=== PATIENT | male | born 1950 | race Caucasian/White ===

== ENCOUNTER 2021-05-23 01:34 | Day surgery (SDC) | payer MEDICARE, SELFPAY ==
[2021-04-15 09:51] VITALS: BMI 18.0
[2021-05-03 13:44] VITALS: BMI 18.5
[2021-05-23 10:00] VITALS: BP 167/65; PULSE 54; RESP 20; TEMP 36.5; O2SAT 98; BMI 17.4
--- NOTE | 2021-05-23 10:05 | WPDANESEPPF ---
Anes - Initial Pre Proc Eval Procedure: Operation Date: 05/23/21 11:00 Proposed Procedures p Screening Colonoscopy - Tomy Lobo MD Date/Time: 05/23/21 10:05 Surgeon: Tomy Lobo MD Pre Op Diagnosis: neoplasm screening Patient Data Age: 71 Gender: M Height: 1.78 m Weight: 55.1 kg Last Vital Signs Temp 36.5 C 05/23/21 10:00 Pulse 54 L 05/23/21 10:00 Resp 20 05/23/21 10:00 BP 167/65 H 05/23/21 10:00 Pulse Ox 98 05/23/21 10:00 Allergies Allergy/AdvReac Type Severity Reaction Status Date / Time No Known Allergies Allergy Verified 05/23/21 09:59 Home Medications Medication Instructions Recorded Confirmed Type escitalopram oxalate 10 mg tablet See Rx Instructions .ROUTE 02/01/21 05/03/21 Rx .COMPLEX #90 tablet lisinopril 2.5 mg tablet See Rx Instructions .ROUTE 02/23/21 05/03/21 Rx .COMPLEX #90 tablet rosuvastatin 40 mg tablet See Rx Instructions .ROUTE 02/23/21 05/03/21 Rx .COMPLEX #90 tablet tamsulosin 0.4 mg capsule See Rx Instructions .ROUTE 02/23/21 05/03/21 Rx .COMPLEX #90 cap metoprolol succinate 25 mg See Rx Instructions .ROUTE 04/19/21 05/03/21 Rx tablet,extended release 24 hr .COMPLEX #30 tablet benzonatate 200 mg capsule 200 mg PO TID PRN #30 cap 04/25/21 05/03/21 Rx gabapentin 300 mg capsule 300 mg PO QHS #90 cap 05/03/21 05/03/21 Rx Patient hx anesthesia problems: none Family hx anesthesia problems: none Results Review: All pre-operative results and documents have been reviewed as part of the pre-operative evaluation. [facility] Past Medical History Medical History History of actinic keratoses History of basal cell carcinoma (BCC) History of lung cancer 2011 Surgical History Surgical History History of lung surgery History of radical neck dissection History of removal of cyst testicle removed 03/2019 Family History Family History Father Family history of diabetes mellitus in first degree relative Social History Social History Smoking packs per day: 1 Smoking cigarettes per day: 20.0 Years smoked: 40 Smoking pack-years: 40.00 Smoking status: Former smoker Tobacco type: cigarettes Alcohol intake: current Drinks per week: 12 Substance use: former Substance use type: marijuana Other substance usage details: 3 or 4 times a week. Living arrangements: with family Spiritual care concerns: No Anes - Eval Final PreProcedure Day of Procedure 05/23/21 10:05 Patient weight: thin Heart: regular rate and rhythm Lungs: clear to auscultation Airway: Mallampati scale class II and other (partial tongue resection, limited movement) Neurological: alert and oriented Last oral intake: >/= 8 hours ASA classification: III Emergent: no Anesthetic plan: proceed Anesthesia type and monitoring: general GIVS and standard monitoring Results Review: All pre-operative results and documents have been reviewed as part of the pre-operative evaluation. Informed Consent: The patient's anesthetic plan and its attendant risks and benefits were discussed with the patient/family/POA. Questions were solicited and answers provided to the satisfaction of the patient/family/POA.
[2021-05-23] MEDS: LACTATED RINGERS 1,000 ML 30 ML IV CONT (10:11)
--- NOTE | 2021-05-23 10:34 | PM.HPGS ---
History of Present Illness History of Present Illness Consent: Risks, benefits, and alternatives have been discussed and questions answered. Patient agrees to proceed with procedure. Chief complaint: neoplasm screening Narrative: Carmelo Yanes is a 71 year old male here for screening colonoscopy, last one about 10 years ago. Review of Systems Constitutional: Constitutional: Denies headache(s) and Denies weakness Eyes: Eyes: Denies blurry vision ENT: Reports Normal hearing present, Denies headache(s) and Denies neck pain Cardiovascular: Cardiovascular: Denies chest pain and Denies dyspnea Respiratory: Respiratory: Denies dyspnea Gastrointestinal: Gastrointestinal: Reports no additional gastrointestinal complaints Genitourinary: Genitourinary: Denies dysuria Musculoskeletal: Musculoskeletal: Denies neck pain Integumentary/Breasts: Skin/Breast: Denies dry skin Neurologic: Reports Normal hearing present, Denies headache(s) and Denies weakness Psychiatric: Psychiatric: Denies anxiety Endocrine: Endocrine: Denies change in body appearance Hematologic/Lymphatic: Hematologic/Lymphatic: Denies easy bleeding Allergic/Immunologic: Allergic/Immunologic: Denies urticaria PMF Past Medical History Medical History (Updated 05/23/21 @ 10:34 by Tomy Lobo MD) Colon cancer screening History of actinic keratoses History of basal cell carcinoma (BCC) History of lung cancer 2011 Surgical History Surgical History History of lung surgery History of radical neck dissection History of removal of cyst testicle removed 03/2019 Family History Family History Father Family history of diabetes mellitus in first degree relative Social History Social History Smoking packs per day: 1 Smoking cigarettes per day: 20.0 Years smoked: 40 Smoking pack-years: 40.00 Smoking status: Former smoker Tobacco type: cigarettes Alcohol intake: current Drinks per week: 12 Substance use: former Substance use type: marijuana Other substance usage details: 3 or 4 times a week. Living arrangements: with family Spiritual care concerns: No Meds Home Medications and Allergies Home Medications Medication Instructions Recorded Confirmed Type escitalopram oxalate 10 mg tablet See Rx Instructions .ROUTE 02/01/21 05/03/21 Rx .COMPLEX #90 tablet lisinopril 2.5 mg tablet See Rx Instructions .ROUTE 02/23/21 05/03/21 Rx .COMPLEX #90 tablet rosuvastatin 40 mg tablet See Rx Instructions .ROUTE 02/23/21 05/03/21 Rx .COMPLEX #90 tablet tamsulosin 0.4 mg capsule See Rx Instructions .ROUTE 02/23/21 05/03/21 Rx .COMPLEX #90 cap metoprolol succinate 25 mg See Rx Instructions .ROUTE 04/19/21 05/03/21 Rx tablet,extended release 24 hr .COMPLEX #30 tablet benzonatate 200 mg capsule 200 mg PO TID PRN #30 cap 04/25/21 05/03/21 Rx gabapentin 300 mg capsule 300 mg PO QHS #90 cap 05/03/21 05/03/21 Rx Allergies Allergy/AdvReac Type Severity Reaction Status Date / Time No Known Allergies Allergy Verified 05/23/21 09:59 Vital Signs Vital Signs - 24 hr 05/23/21 10:00 Temperature 97.7 F Pulse Rate 54 L Respiratory Rate 20 Blood Pressure 167/65 H Pulse Oximetry 98 Exam Const: General: comfortable and no acute distress HENMT: General nose exam: Normal nares present Eyes: General: appearance normal, both eyes and all related structures Neck: Neck: no JVD Resp: Auscultation: clear to auscultation bilaterally Cardio: Rate: regular rate Rhythm: regular rhythm GI: Inspection: non-distended GI Palp: Yes Soft to palpation Skin: General skin exam: normal color Neuro: General: gait normal Speech: normal speech Extrem: General: normal to inspection Psych: Mental Status: mental status grossly normal Assessm
[2021-05-23 10:55] VITALS: BP 141/62; PULSE 47; RESP 16; O2SAT 100
[2021-05-23 11:05] VITALS: BP 141/58; PULSE 53; RESP 14; O2SAT 100
[2021-05-23 11:15] VITALS: BP 158/69; PULSE 46; RESP 14; O2SAT 100
== END 2021-05-23 12:14 | disposition home or self-care (01) ==
PROVIDERS: PCP Internal Medicine; Visit Provider Internal Medicine Gastroenterology
PROC: 0DJD8ZZ Inspection of Lower Intestinal Tract, Via Natural or Artificial Opening Endoscopic (ICD-10-PCS; CPT 45378; principal; 2021-05-23 11:00)
DX: Z12.11 Encounter for screening for malignant neoplasm of colon (principal); K57.30 Diverticulosis of large intestine without perforation or abscess without bleeding; K64.8 Other hemorrhoids; Z85.828 Personal history of other malignant neoplasm of skin; Z87.891 Personal history of nicotine dependence; F12.90 Cannabis use, unspecified, uncomplicated
CPT/HCPCS: G0121; J2704; J7120

== ENCOUNTER 2021-08-12 07:22 | Outpatient (CLI) | payer MEDICARE, SELFPAY ==
--- NOTE | 2021-08-12 07:30 | ECHO_ITS ---
Patient Info Name: Carmelo Yanes Age: 71 years : 1950 Gender: Male Ht: 70 in Wt: 125 lbs BSA: 1.66 m2 HR: 43 bpm BP: 157 / 71 mmHg Technical Quality: Good Exam Date: 08/12/2021 7:43 AM Exam Location: [facility] Patient Status: Outpatient Admit Date: 08/12/2021 Staff Ordering Physician: Michael Way DO Trauma Doctor: Fide Benavides RDCS Attending Provider: Michael Way DO Referring Physician: Seamus SEARS; Exam Type: CA echo doppler color flow Study Info Indications I35.1 - Nonrheumatic aortic (valve) insufficiency Complete two-dimensional, color flow and Doppler transthoracic echocardiogram is performed. Summary 1. Complete two-dimensional, color flow and Doppler transthoracic echocardiogram is performed. 2. Left ventricular chamber dimension is mildly enlarged. 3. Left ventricular systolic function is preserved, estimated at 50-55%. 4. The left ventricular diastolic function is grade II diastolic dysfunction. 5. E/e' 8 is minimally elevated. 6. Global longitudinal strain is abnormal at -16.0%. 7. There is moderate aortic valve sclerosis. 8. There is mild to moderate aortic valve regurgitation. 9. There is trace mitral valve regurgitation. 10. No pulmonary hypertension, estimated pulmonary arterial systolic pressure is 22 mmHg. Left Ventricle E/e' 8 is minimally elevated. Global longitudinal strain is abnormal at -16.0%. Left ventricular systolic function is preserved, estimated at 50-55%. Left ventricular chamber dimension is mildly enlarged. The left ventricular diastolic function is grade II diastolic dysfunction. Right Ventricle Right ventricular systolic function is normal and with normal TAPSE 3.0 cm. Right ventricular chamber dimension is normal. Left Atria Left atrial chamber dimension is normal. Right Atria Right atrial chamber dimension is normal. Aortic Valve The aortic valve is trileaflet. There is moderate aortic valve sclerosis. There is no aortic valve stenosis. There is mild to moderate aortic valve regurgitation. Pulmonic Valve There is no pulmonic regurgitation. Mitral Valve There is no mitral valve stenosis. There is trace mitral valve regurgitation. Tricuspid Valve There is no tricuspid valve regurgitation. No pulmonary hypertension, estimated pulmonary arterial systolic pressure is 22 mmHg. Pericardium/Pleural There is no pericardial effusion. Inferior Vena Cava Normal inferior vena cava with >50% collapse upon inspiration consistent with normal right atrial pressure, 5 mmHg. Aorta The aortic root size at the sinus of Valsalva is normal. Left Ventricular Outflow Tract Name Value Normal LVOT 2D LVOT Diameter 2.0 cm LVOT Doppler LVOT Peak Gradient 6 mmHg LVOT Mean Gradient 3 mmHg LVOT VTI 30 cm LVOT VTI/AV VTI Ratio 0.8 LVOT Stroke Volume 95 ml LVOT CO 3.8 l/min LVOT CI 2.3 l/min/m2 Pulmonic Valve --------
== END 2021-08-12 07:23 | disposition home or self-care (01) ==
LOC: ANHCARD 07:24
PROVIDERS: PCP Internal Medicine; Visit Provider Internal Medicine Cardiovascular Disease
DX: I35.1 Nonrheumatic aortic (valve) insufficiency (principal)
CPT/HCPCS: 93306

== ENCOUNTER 2021-09-27 08:44 | Outpatient (CLI) | payer MEDICARE, SELFPAY ==
--- NOTE | ~2021-09-27 | US_ITS ---
EXAMINATION: US aorta [facility] DATE: 09/27/2021 09:41 INDICATION: Abdominal aortic aneurysm screening with risk factors of prior smoking, hypertension and borderline diabetes TECHNIQUE: Grayscale, color Doppler, and pulsed Doppler images of the aorta and common iliac arteries were obtained. COMPARISON: 01/01/2019 FINDINGS: The proximal aorta measures 2.8 cm in AP diameter. The mid aorta measures 2.5 cm. The distal aorta me asures 1.5 cm. There are scattered nonhemodynamically significant atherosclerotic plaque throughout t he aorta. The right common iliac artery measures 7 mm. The left common iliac artery measures 7 mm. IMPRESSION: 1. No abdominal aortic aneurysm. Reviewed, dictated and finalized at location A.
== END 2021-09-27 08:45 | disposition home or self-care (01) ==
PROVIDERS: PCP Internal Medicine; Visit Provider Internal Medicine
DX: Z13.6 Encounter for screening for cardiovascular disorders (principal); Z87.891 Personal history of nicotine dependence
CPT/HCPCS: 76706

== ENCOUNTER → 2022-03-14 14:41 | Outpatient (CLI) | payer MEDICARE, SELFPAY ==
--- NOTE | ~2022-03-14 | XR_ITS ---
XR wrist RT min 3V DATE: 03/14/2022 15:02 INDICATION: Right wrist pain TECHNIQUE: 4 views COMPARISON: None FINDINGS: There is diffuse osteopenia. There is severe narrowing and some eburnation at the triscaphe joint. Old ununited fracture of the ulnar styloid process. Benign cyst at the base of the ulnar styloid proc ess. Chronic smoothly benign-appearing probable pressure erosions along the anterior aspect of the distal radius and ulna. Consider MR imaging for further evaluation. No fracture, dislocation, periosteal reaction or bone destruction. 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
== END ==
PROVIDERS: PCP Internal Medicine; Visit Provider Nurse Practitioner
DX: M25.531 Pain in right wrist (principal); S52.611K Displaced fracture of right ulna styloid process, subsequent encounter for closed fracture with nonunion; M19.031 Primary osteoarthritis, right wrist; M85.88 Other specified disorders of bone density and structure, other site
CPT/HCPCS: 73110

== ENCOUNTER 2022-03-29 13:48 | Outpatient (CLI) | payer MEDICARE, SELFPAY ==
--- NOTE | ~2022-03-29 | MR_ITS ---
EXAMINATION: MR wrist RT wo con DATE: 03/29/2022 14:38 INDICATION: Right wrist pain TECHNIQUE: Magnetic resonance imaging (MRI) of the right wrist was performed without intravenous cont rast. Sequences performed include axial PD-weighted FSE and PD-weighted FS FSE, coronal PD-weighted F S FSE and T1-weighted SE, and sagittal PD-weighted FS FSE and PD-weighted FSE. COMPARISON: None FINDINGS: Intrinsic ligaments: The scapholunate and lunotriquetral ligaments are normal. Triangular fibrocartilage complex (TFCC): There is a chronic nonunited avulsion fracture of the ulnar styloid process. Partial tear of the fove al attachment of the triangular fibrocartilage complex. The styloid attachment the fractured styloid process remains intact. There may be a small perforation of the central aspect of the central fibroca rtilaginous disc of the triangular fibrocartilage complex. The dorsal and volar radioulnar ligaments as well as the ulnar triquetral ligament are normal. There is a tear of the extensor carpi ulnaris nuñez btle sheath. Extensor wrist: There is ulnar subluxation of the normal-appearing extensor carpi ulnaris tendon from the extensor ca rpi ulnaris groove. Extensor tendons of the wrist are otherwise normal. No tenosynovitis. Flexor wrist: The flexor tendons of the wrist are normal. No abnormality in the carpal tunnel with normal median n erve. Guyon's canal: Guyon's canal including the ulnar nerve and artery are normal. Bones/other: No fracture or pathologic marrow replacing process. Severe triscaphe osteoarthritis with degenerative subarticular edema-like signal change at both sides of the joint space. Prominent cystic change at t he radial aspect of the head of the first metacarpal with the joint space excluded from the field-of- view. Multiple low signal intensity bone island at the capitate. Mild osteoarthritis at the distal ra dioulnar, wrist, midcarpal and at the carpal metacarpal joints. IMPRESSION: 1. Chronic nonunited ulnar styloid avulsion fracture with partial tear of the foveal attachment and c entral fibrocartilaginous disc of the triangular fibrocartilage complex. 2. Tear of the extensor carpi ulnaris of sheath with ulnar subluxation of the otherwise normal extens or carpi ulnaris tendon. 3. 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 Reviewed, dictated and finalized at location A. IMPRESSION: 1. Chronic nonunited ulnar styloid avulsion fracture with partial tear of the f oveal attachment and central fibrocartilaginous disc of the triangular fibrocar tilage complex. 2. Tear of the extensor carpi ulnaris of sheath with ulnar subluxation of the o therwise normal extensor carpi ulnaris tendon. 3. 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
== END 2022-03-29 13:49 | disposition home or self-care (01) ==
PROVIDERS: PCP Internal Medicine; Visit Provider Nurse Practitioner
DX: M19.031 Primary osteoarthritis, right wrist (principal)
CPT/HCPCS: 73221

== ENCOUNTER 2022-12-05 14:48 | Outpatient (CLI) | payer MEDICARE, SELFPAY ==
--- NOTE | ~2022-12-05 | CT_ITS ---
EXAMINATION: CT lung screening DATE: 12/05/2022 15:08 INDICATION: Personal history of nicotine dependence. TECHNIQUE: Computed tomography (CT) of the chest was performed without intravenous contrast. The dose -length product was 71.63 mGy-cm. Automated exposure control and iterative reconstruction technique w ere employed. COMPARISON: CT dated 03/20/2019 FINDINGS: Cardiomegaly. No significant pleural or pericardial effusion. No thoracic lymphadenopathy. The upper abdomen is unremarkable. Status post right upper lobectomy. There is emphysema. No endobron chial lesions. No suspicious pulmonary nodules or masses. No pneumothorax. Mild wedge compression def ormities of the midthoracic spine appear chronic. Mild associated thoracic kyphosis. No focal airspac e consolidation. IMPRESSION: 1. Lung-RADS category 1: Negative. Continue annual screening with noncontrast low-dose chest CT in 12 months. Reviewed, dictated and finalized at location L. IMPRESSION: 1. Lung-RADS category 1: Negative. Continue annual screening with noncontrast l ow-dose chest CT in 12 months.
== END 2022-12-05 14:49 | disposition home or self-care (01) ==
PROVIDERS: PCP Family Medicine; Visit Provider Nurse Practitioner
DX: Z12.2 Encounter for screening for malignant neoplasm of respiratory organs (principal); Z87.891 Personal history of nicotine dependence
CPT/HCPCS: 71271

== ENCOUNTER 2023-09-17 14:36 | Outpatient (CLI) | payer MEDICARE, SELFPAY ==
--- NOTE | 2023-09-17 14:47 | ECHO_ITS ---
Patient Info Name: Carmelo Yanes Age: 73 years : 1950 Gender: Male Ht: 70 in Wt: 132 lbs BSA: 1.71 m2 HR: 43 bpm BP: 148 / 72 mmHg Technical Quality: Fair Exam Date: 09/17/2023 3:04 PM Exam Location: [facility] Patient Status: Outpatient Admit Date: 09/17/2023 Staff Ordering Physician: Michael Way DO Telephone Recorder: Attending Provider: Michael Way DO Referring Physician: Seamus SEARS; Exam Type: CA echo doppler color flow Study Info Indications I35.1 - Nonrheumatic aortic (valve) insufficiency Complete two-dimensional, color flow and Doppler transthoracic echocardiogram is performed. Summary 1. Complete two-dimensional, color flow and Doppler transthoracic echocardiogram is performed. 2. Left ventricular systolic function is preserved, estimated at 50-55%. 3. Left ventricular chamber dimension is moderately enlarged. 4. The left ventricular diastolic function is grade I diastolic dysfunction. 5. E/e' 12 is mildly elevated. 6. Left atrial chamber dimension is moderately enlarged. 7. Right atrial chamber dimension is mildly enlarged. 8. There is mild aortic valve sclerosis. 9. There is moderate aortic valve regurgitation. 10. There is trace mitral valve regurgitation. 11. There is mild tricuspid valve regurgitation. Left Ventricle E/e' 12 is mildly elevated. Left ventricular systolic function is preserved, estimated at 50-55%. Left ventricular chamber dimension is moderately enlarged. The left ventricular diastolic function is grade I diastolic dysfunction. Right Ventricle Right ventricular systolic function is normal and with normal TAPSE 2.6 cm. Right ventricular chamber dimension is normal. Left Atria Left atrial chamber dimension is moderately enlarged. Right Atria Right atrial chamber dimension is mildly enlarged. Aortic Valve The aortic valve is trileaflet. There is mild aortic valve sclerosis. There is no aortic valve stenosis. There is moderate aortic valve regurgitation. Pulmonic Valve There is no pulmonic regurgitation. Mitral Valve There is no mitral valve stenosis. There is trace mitral valve regurgitation. Tricuspid Valve RVSP is not calculated due to an inadequate TR jet. There is mild tricuspid valve regurgitation. Pericardium/Pleural There is no pericardial effusion. Inferior Vena Cava Normal inferior vena cava with >50% collapse upon inspiration consistent with normal right atrial pressure, 5 mmHg. Aorta The aortic root size at the sinus of Valsalva is normal. Left Ventricular Outflow Tract Name Value Normal LVOT 2D LVOT Diameter 2.0 cm LVOT Doppler LVOT Peak Gradient 6 mmHg LVOT Mean Gradient 3 mmHg LVOT VTI 28 cm LVOT VTI/AV VTI Ratio 0.5 LVOT Stroke Volume 86 ml LVOT CO 3.9 l/min LVOT CI 2.3 l/min/m2 Pulmonic Valve Name Value Normal PV Doppler ------
== END 2023-09-17 14:37 | disposition home or self-care (01) ==
PROVIDERS: PCP Family Medicine; Visit Provider Internal Medicine Cardiovascular Disease
DX: I35.1 Nonrheumatic aortic (valve) insufficiency (principal); I36.1 Nonrheumatic tricuspid (valve) insufficiency
CPT/HCPCS: 93306

== ENCOUNTER 2023-12-19 13:13 | Outpatient (CLI) | payer MEDICARE, SELFPAY | END 2023-12-19 13:14 | disposition home or self-care (01) | LOC: ANHAUDASC 13:14 | PROVIDERS: PCP Family Medicine; Visit Provider Otolaryngology | DX: H93.13 Tinnitus, bilateral (principal); H90.3 Sensorineural hearing loss, bilateral; Z85.810 Personal history of malignant neoplasm of tongue; Z86.79 Personal history of other diseases of the circulatory system | CPT/HCPCS: 92557; 92567 ==

== ENCOUNTER 2024-05-08 10:05 | Outpatient (CLI) | payer MEDICARE, SELFPAY | END 2024-05-12 09:31 | disposition home or self-care (01) | LOC: ANHCSM 10:16 | PROVIDERS: PCP Family Medicine; Visit Provider Internal Medicine Cardiovascular Disease | DX: G47.10 Hypersomnia, unspecified (principal) | CPT/HCPCS: 95800 ==

== ENCOUNTER 2024-07-28 14:26 | Outpatient (CLI) | payer MEDICARE, SELFPAY ==
--- NOTE | ~2024-07-28 | XR_ITS ---
XR wrist RT min 3V Ordering provider: Haylee Bright PA-C History: . M25.531 - Pain in right wrist, INJURY COUPLE YEARS AGO . Comparison: None. FINDINGS: BONES: Fracture of the ulnar styloid most likely chronic. Otherwise, No acute fracture or dislocation . No definite scaphoid fracture. Sclerotic areas seen in the distal metaphysis of the fourth and fif th metacarpal bones. JOINT SPACES: Osteoarthritic changes of the scaphotrapezium and first carpometacarpal joint. SOFT TISSUES: Normal. IMPRESSION: No acute osseous abnormality right wrist. Chronic fracture of the ulnar styloid. Osteoarthritic changes of the scaphotrapezial and first carpometacarpal joint. Reviewed, dictated and finalized at location A. 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
--- NOTE | ~2024-07-28 | CT_ITS ---
EXAMINATION:CT chest high resolution wo me DATE: 07/28/2024 15:14 INDICATION: Lung cancer. TECHNIQUE: Computed tomography (CT) of the chest was performed without intravenous contrast. Automate d exposure control and iterative reconstruction technique were employed. The dose-length product (DLP ) was 148.65 mGy-cm. COMPARISON: Chest CT 12/05/2022 FINDINGS: There is mild scarring at the lung apices. There are changes of right upper lobectomy. Ther e is mild emphysema. There is mild atelectasis bilaterally. There is a stable 3 mm part solid nodule in left lung upper lobe, likely benign. No pleural effusion. Cardiomegaly is noted. There are coronar y artery calcifications. No pericardial effusion. The central pulmonary arteries are enlarged, consis tent with pulmonary arterial hypertension. There is bilateral gynecomastia. Calcifications in the sachin er and spleen are consistent with old granulomatous disease. There is mild thoracic spondylosis. Ther e is mild chronic anterior wedging of multiple vertebral bodies. IMPRESSION: 1. No evidence of metastatic disease. 2. Mild emphysema. 3. Right upper lobectomy. Reviewed, dictated and finalized at location A. [facility]
== END 2024-07-28 14:27 | disposition home or self-care (01) ==
PROVIDERS: PCP Family Medicine; Visit Provider Family Medicine
DX: Z12.2 Encounter for screening for malignant neoplasm of respiratory organs (principal); Z87.891 Personal history of nicotine dependence; S52.611A Displaced fracture of right ulna styloid process, initial encounter for closed fracture; X58.XXXA Exposure to other specified factors, initial encounter; Z85.118 Personal history of other malignant neoplasm of bronchus and lung
CPT/HCPCS: 71250; 73110

== ENCOUNTER 2024-10-03 12:30 | Outpatient (RCR) | payer MEDICARE, SELFPAY ==
--- NOTE | 2024-08-18 16:03 | OTOPEVAL1 ---
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 He reports experiencing thumb/hand pain for years . He reports he hasn't been as active lately and hasn't been experiencing as much pain, however with frequent hand use his pain does increase. He is right handed. Reports difficulties with gripping/opening a jar, unclipping the dog's leash from his collar, and prolonged writing. 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 Today a hand based thumb spica orthosis was fabricated and ROM HEP was issued. Continued follow up indicated for use of modalities, progressive therapeutic exercise, and education on joint protection techniques to facilitate improved functional use of his right, dominant hand. Plan of Care Interventions Therapeutic Exercise,Manual Therapy,Therapeutic Activities,Hot Pack/Cold Pack,Check Out for Orthotic/Prosthetic,Ultrasound,Paraffin OT Services Indicated Yes Treatment Frequency and 1x/week for 5 visits Duration These treatments will address the objective and functional deficits as defined above. The patient will be advanced safely and appropriately in order for the patient to progress towards his/her prior level of function. Additional exercises will be introduced and as well as a comprehensive home exercise program upon discharge, if needed, ?to ensure carryover of functional gains achieved in the clinic. This treatment plan has been reviewed and agreement upon by the patient.
--- NOTE | 2024-08-18 16:03 | OPREHPOC ---
Outpatient Therapy Plan of Care This is a Multidisciplinary Plan of Care that may contain components documented by all disciplines (PT, OT, and ST.) OT Problem 1 OT Problem #1 Knowledge Deficit OT Goal 1 Goal / Goal Update Patient to be independent with instructed materials. Target Visit 5 OT Problem 2 OT Problem #2 Pain OT Goal 1 Goal / Goal Update Patient to report reduced right hand pain to 2/10 or less at worst during ADLs. Target Visit 5 OT Problem 3 OT Problem #3 Impaired Strength OT Goal 1 Goal / Goal Update Patient to be able to progress functional strengthening HEP to improve right UE strength for ADLs: - progress to 3 lb. 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
--- NOTE | 2024-09-26 14:10 | PCOTNOTE ---
Patient did not show up for scheduled appointment this date. Called patient and left voicemail regarding missed appt.
--- NOTE | 2024-10-03 13:26 | OTOPDC ---
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 He notes that he is experiencing reduced pain in the hand/thumb. He reports he is able to use the thumb for more tasks, but he continues to be careful so he doesn't overdo it. He reports he no longer is experiencing pain with unclipping the dog's leash from his collar. He continues to have difficulties with opening jars. Overall he is pleased with the progress he has made. Reported Pain Level Pain Score 0: Self Report Additional Pain Score Comments No pain rest. at worst the thumb has gotten up to: 5/10, noticed this when he was holding a pen and doing his crossword puzzles for a prolonged period Assessment OT Clinical Summary Patient referred to OT with right hand/thumb pain. He has made good progress, noting reduced pain and improved functional use of his right/dominant hand. The pain in the palm/wrist has subsided. He is able to complete finger flexion without pain radiating up the forearm. The right thumb pain continues to be limiting, however. He has progressed to no pain at rest and pain with prolonged pinch, like on a pen, for instance. He reports the orthosis gets in the way and he doesn't particularly like wearing it. Otherwise he is been completing gentle thumb strengthening HEP with very little pain. Reviewed HEP and educated on HEP progression as he is able. No further skilled OT indicated at this time. Plan of Care OT Services Indicated No
== END 2024-10-03 14:29 | disposition home or self-care (01) ==
LOC: ANHOT 12:30
PROVIDERS: PCP Family Medicine; Visit Provider Plastic Surgery
DX: M72.0 Palmar fascial fibromatosis [Dupuytren] (principal)
CPT/HCPCS: 97018; 97110; 97140; 97165; L3933

== ENCOUNTER 2024-10-07 07:45 | Outpatient (CLI) | payer MEDICARE, SELFPAY ==
--- OUTSIDE RECORDS SUMMARY | 2024-10-07 07:48 | XMS_ITS ---
Author Organization [facility] [employer] Address [address] [place] [address] Care Team Providers Care Cmm Inspector Name Role Phone Matt Ulrich MD Primary Care Provider Krysta Stockton Unavailable [phone] Migration, Provider Unavailable Unavailable REASON FOR VISIT EMR-Dami Medications Medication SIG (Take, Route, Frequency, Duration) Notes Start Date End Date Status Zoloft 50 MG Oral 11/29/2023 Active Gabapentin 300 MG Oral 11/29/2023 A ctive Metoprolol Succinate ER 25 MG Oral 11/29/2023 Active Sertraline HCl 25 MG Oral 11/29/2023 Active Sertraline HCl 50 MG Oral 11/29/2023 Active Sertraline HCl 100 MG Oral 11/29/2023 Active Rosuvastatin Calcium 40 MG Oral 11/29/2023 Active Tamsulosin HCl 0.4 MG Oral 11/29/2023 Active Lisinopril 2.5 MG Oral 11/29/2023 A ctive Diclofenac Sodium 75 MG Oral 11/29/2023 Active Gabapentin 400 MG Oral 11/29/2023 A ctive amLODIPine Besylate 5 MG Oral 11/29/2023 Active Social History Sex Assigned At : Social History Observation Description Sex Assigned At Male Encounters Encounter Location Date Provider Diagnosis [facility] [employer] [facility] [address] [place] [address] 12/02/2023 Provider Migration Plan Of Treatment Next Appt Details Provider Name:Krysta Carter, 11/27/2024 02:30:00 PM, [address], [facility] [address], [place], [address], Progress Notes * MAMADOU DAVID DDOB: 2 (74 yo M)Acc No.[id number]:12/02/2023 Patient: MAMADOU BETHEA :1950 A ge:73 Y S ex:Male Address:[address] [place] [address], [address] Subjective: * Chief Complaints: * E MR-Dami * Medical History: * Surgical History: R econstructive surgery 02/07/2020Any surgical history 02/20/2014 * Hospitalization/Major Diagno stic Procedure: * Social History: M igrated Social History: M igrated Social History: Alcohol Intake: Moderate 02/09/2023,Tobacco Years: Former smoker 01/31/2023. * Medications: T akingSertraline HCl 100 MG Tablet Oral Zoloft 50 MG Tablet Oral Gabapentin 400 MG Capsule Oral Sertraline HCl 50 MG Tablet Oral Gabapentin 300 MG Capsule Oral Metoprolol Succinate ER 25 MG Tablet Extended Release 24 Hour Oral Sertraline HCl 25 MG Tablet Oral Lisinopril 2.5 MG Tablet Oral Rosuvastatin Calcium 40 MG Tablet Oral Tamsulosin HCl 0.4 MG Capsule Oral Diclofenac Sodium 75 MG Tablet Delayed Release Oral amLODIPine Besylate 5 MG Tablet Oral Taking Sertraline HCl 100 MG Tablet Oral Taking Zoloft 50 MG Tablet Oral Taking Gabapentin 400 MG Capsule Oral Taking Sertraline HCl 50 MG Tablet Oral Taking Gabapentin 300 MG Capsule Oral Taking Metoprolol Succinate ER 25 MG Tablet Extended Release 24 Hour Oral Taking Sertraline HCl 25 MG Tablet Oral Taking Lisinopril 2.5 MG Tablet Oral Taking Rosuvastatin Calcium 40 MG Tablet Oral Taking Tamsulosin HCl 0.4 MG Capsule Oral Taking Diclofenac Sodium 75 MG Tablet Delayed Release Oral Taking amLODIPine Besylate 5 MG Tablet Oral Objective: * Vitals: * Physical Examination: Assessment: Plan: * Treatment: * Procedure Codes: * true * Date: Generated for Moni fuller/Dejan/Mary on: 0 10/07/2024 07:48 AM T
--- OUTSIDE RECORDS SUMMARY | 2024-10-07 07:48 | XMS_ITS | Patient Health Record ---
Author Organization [facility] [employer] Address [address] [place] [address] Care Team Providers Care Integrated Circuit Fabricator Name Role Phone Matt Ulrich MD Primary Care Provider UnavailKrysta Varner Unavailable [phone] Migration, Provider Unavailable Unavailable Allergies No Known Allergies Reason For Referral No Information Medications Medication SIG (Take, Route, Frequency, Duration) Notes Start Date End Date Status amLODIPine Besylate 5 MG Oral 11/29/2023 Active Sertraline HCl 100 MG 1 tablet Oral Once a day for 90 days Active Sertraline HCl 100 MG 1.5 tablet Oral Once a day for 90 days dose increase, please cancel any previous remaining scripts Active Gabapentin 400 MG Oral 11/29/2023 A ctive Lisinopril 2.5 MG Oral 11/29/2023 A ctive Rosuvastatin Calcium 40 MG Oral 11/29/2023 Active Tamsulosin HCl 0.4 MG Oral 11/29/2023 Active Diclofenac Sodium 75 MG Oral 11/29/2023 Active Social History Sex Assigned At : Social History Observation Description Sex Assigned At Male Household Question Answer Notes Marital status: Problems Problem Type SNOMED Code ICD Code Onset Dates Problem Status W/U Status Risk Notes Problem Moderate recurrent major depression (33185502) Major depressive disorder, recurrent, moderate (F33.1) Active confirmed Problem Generalized anxiety disorder (10667024) Generalized anxiety disorder (F41.1) Active confirmed Vital Signs Height-cm 182.88 cm 11/29/2023 Height 72.00 in 11/29/2023 Encounters Encounter Location Date Provider Diagnosis [facility] [employer] [facility] [address] [place] [address] 11/29/2023 Krysta Raul Major depressive disorder, recurrent, moderate F33.1 and Generalized anxiety disorder F41.1 [facility] [address] [place] [address] 03/31/2024 Krysta Raul Generalized anxiety disorder F41.1 and Major depressive disorder, recurrent, moderate F33.1 [facility] [address] [facility] [address] [place] [address] 07/31/2024 Krysta Raul Generalized anxiety disorder F41.1 and Major depressive disorder, recurrent, moderate F33.1 [facility] [address] [facility] [address] [place] [address] 12/01/2023 Provider Migration [place] [address] [facility] [address] [facility] [address] [place] [address] 12/02/2023 Provider Migration Assessments Encounter Date Diagnosis (ICD Code) Assessment Notes Treatment Notes Treatment Clinical Notes Section Notes 03/31/2024 Generalized anxiety disorder (ICD-10 - F41.1) 07/31/2024 Generalized anxiety disorder (ICD-10 - F41.1) SSRI/SNRI side effects discussed including but not limited to, gastric upset, nausea, vomiting, diarrhea and/or constipation, weight changes, sexual side effects including loss of libido, increased suicidal thoughts/behavi ors in children and young adults, and serotonin syndrome. 11/29/2023 Major depressive disorder, recurrent, moderate (ICD-10 - F33.1) 11/29/2023 Generalized anxiety disorder (ICD-10 - F41.1) 03/31/2024 Major depressive disorder, recurrent, moderate (ICD-10 - F33.1) 07/31/2024 Major depressive disorder, recurrent, moderate (ICD-10 - F33.1) 03/31/2024 Other Stable, continue current medication. Refill sent in today. Patient educated on all medications including potential benefits, side effects, risks. Educated on proper dosing schedule and importance of compliance. Common side effects to SSRI medications include headaches, dry mouth/eye, GI upset (including indigestion, nausea, diarrhea), sleeping problems (insomnia or drowsiness), decreased libido, blurred vision, dizziness. Generally, side effects will subside or lessen with time and are common during drug initiation and dose changes. If they persist please contact the office. 07/31/2024 Other Increase sertraline to 150mg daily for anxiety Patient educated on all medications including potential benefits, side effects, risks. Educated on proper dosing schedule and importance of compliance. -Assessment and treatment plan reviewed with patient. -Compliance with treatment plan importance discussed. -Discussed the risks/benefits of this medication -Discussed medication side effects. -Contact office if symptoms worsen. -Discussed that it can take up to 6-8 weeks to see full therapeutic effects of psychotropic medications. -Crisis prevention hotline 302. Plan Of Treatment Next Appt Details Provider Name:Krysta Garcia Raul, 11/27/2024 02:30:00 PM, [address] [facility] [address], [facility] [address], [place], [address], Insurance Providers Payer Name Payer Address Payer Phone Subscriber Number Group Number Insured Name Patient Relationship to Insured Coverage Start Date Coverage End Date [employer] Medicare Replacement/ Advantage - Hmo [address] [address] [place] [address] [id number] MAMADOU DAVID Self - patient is the insured Medical (General) History Surgical History Surgery Date(Month/Year) Reconstructive surgery 02/07/2020 Any surgical history 02/20/2014
--- OUTSIDE RECORDS SUMMARY | 2024-10-07 07:48 | XMS_ITS ---
Author Organization [facility] [employer] Address [address] [facility] [address] [place] [address] Care Team Providers Care Junior Qa Analyst Name Role Phone Matt Ulrich MD Primary Care Provider Krysta Stockton Unavailable [phone] Allergies No Known Allergies REASON FOR VISIT follow up Medications Medication SIG (Take, Route, Frequency, Duration) Notes Start Date End Date Status Sertraline HCl 100 MG 1 tablet Oral Once a day for 90 days Active Rosuvastatin Calcium 40 MG Oral 11/29/2023 Active amLODIPine Besylate 5 MG Oral 11/29/2023 Active Tamsulosin HCl 0.4 MG Oral 11/29/2023 Active Diclofenac Sodium 75 MG Oral 11/29/2023 Active Gabapentin 400 MG Oral 11/29/2023 A ctive Lisinopril 2.5 MG Oral 11/29/2023 A ctive Social History Sex Assigned At : Social History Observation Description Sex Assigned At Male Household Question Answer Notes Marital status: Problems Problem Type SNOMED Code ICD Code Onset Dates Problem Status W/U Status Risk Notes Problem Generalized anxiety disorder (44226569) Generalized anxiety disorder (F41.1) Active confirmed Problem Moderate recurrent major depression (76350939) Major depressive disorder, recurrent, moderate (F33.1) Active confirmed Encounters Encounter Location Date Provider Diagnosis [facility] [employer] [facility] [address] [facility] [address] [place] [address] 03/31/2024 Krysta Carter Generalized anxiety disorder F41.1 and Major depressive disorder, recurrent, moderate F33.1 Assessments Encounter Date Diagnosis (ICD Code) Assessment Notes Treatment Notes Treatment Clinical Notes Section Notes 03/31/2024 Generalized anxiety disorder (ICD-10 - F41.1) 03/31/2024 [...] If they persist please contact the office. Plan Of Treatment Medication Medication Name Sig Start Date Stop Date Notes Sertraline HCl 100 MG 1 tablet Oral Once a day for 90 days Treatment Notes Assessment Notes Other Stable, continue current medication. Refill sent [...] If they persist please contact the office. Next Appt Details Follow Up: 4 Months, Reason: medication follow up Provider Name:Krysta Carter, 11/27/2024 02:30:00 PM, [facility] [facility] [address] [facility], [facility] [address], [place], [address], Progress Notes * MAMADOU DAVID DDOB: 2 (74 yo M)Acc No.[id number]:03/31/2024 Patient: Alejandra MAMADOU LOFTON Provider: RIYA MCDOWELLHNP :1950 A ge:74 Y S ex:Male Date:03/31/2024 Address:[address] [place] [address], [facility] Pcp:Matt Ulrich MD Subjective: * Chief Complaints: * 1 . Follow up. * HPI: D epression screening: PHQ-9 L ittle interest or pleasure in doing things S everal days, F eeling down, depressed, or hopeless S everal days, T rouble falling or staying asleep, or sleeping too much S everal days, F eeling tired or having little energy S everal days, P oor appetite or overeating S everal days, F eeling bad about yourself or that you are a failure, or have let yourself or your family down N ot at all, T rouble concentrating on things, such as reading the newspaper or watching television N ot at all, M oving or speaking so slowly that other people could have noticed; or the opposite, being so fidgety or restless that you have been moving around a lot more than usual S everal days, T houghts that you would be better off or of hurting yourself in some way N ot at all, T otal Score 6, I nterpretation M ild Depression. I ntervention D epression Screening Findings P ositve, F ollow-Up for Depression M anagement of mental health treatment, A dditional Evaluation for Depression P sychiatric interview and evaluation, N jil of the standardized tool used for adult depression screening: P atient Health Questionnaire (PHQ-9). D epression Screening: PHQ-2 (2015 Edition) L ittle interest or pleasure in doing things? S everal days, F eeling down, depressed, or hopeless? S everal days, T otal Score 2 . G AD-7 (2018 Edition) F eeling nervous, anxious, or on edge S everal days, Not being able to stop or control worrying N ot at all, W orrying too much about different things S everal days, T rouble relaxing N ot at all, B eing so restless that it is hard to sit still N ot at all, B ecoming easily annoyed or irritable S everal days,?Feeling afraid as if something awful might happen N ot at all, T otal CESAR-7 Score 3 , I nterpretation of Total ( 0 to 4) No Anxiety. H istory of Presenting Problem: Anxiety R ates anxiety 2/10 with 10 being most severe..?Depression R ates depression 2/10 with 10 being most severe. Denies SI. . M ood lability n o hx marian. P sychosis n o hx psychosis. S leep disturbance P ending sleep evaluation . S ubstance abuse m arijuana. S uicidal ideation d enies. Here for follow up. No medication changes made last apt. Reports he is doing well. Anxiety is stable, stuff doesnt get to me like it used to . Denies any residual anxiety. Mood has been fair, although reports low energy. His cardiac doctor wants him to do a sleep study, planning to do one at home. He had a heart monitor and was bradycardiac (30 bpm) during sleep. He is getting about 7 hours nightly. Appetite is improving, no recent weight loss. P ast Psychiatric Hospitalizations: Previous psychiatric hospitalizations P revious Psychiatric Hospitalization N o. Social hx: . Has one son who lives with him. 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 Medical hx: Cancer (lung, tongue), HTN, high cholesterol Past psychiatric hx- Hx ECT/TMS/esketamine: none Past IPBH admissions/IOP/PHP: none Previous suicide attempts: denies Previous self-harming: denies Family psychiatric hx: none he is aware of Previous medications: escitalopram. * ROS: P sychiatric: Patient denies s uicidal thoughts, marian, psychosis. [facility] for details. * Medical History: P roblems: Generalized anxiety disorder, Moderate recurrent major depression, ,. * Surgical History: R econstructive surgery 02/07/2020, Any surgical history 02/20/2014. * Family History: 1 son(s) . . * Social History: M igrated Social History: M igrated Social History: Alcohol Intake: Moderate 02/09/2023,Tobacco Years: Former smoker 01/31/2023. H ousehold: H ousehold M arital status: d ivorced. M iscellaneous: O ccupation: retired. * Medications: T aking Gabapentin 400 MG Capsule Oral , Taking Lisinopril 2.5 MG Tablet Oral , Taking Rosuvastatin Calcium 40 MG Tablet Oral , Taking Tamsulosin HCl 0.4 MG Capsule Oral , Taking Diclofenac Sodium 75 MG Tablet Delayed Release Oral , Taking amLODIPine Besylate 5 MG Tablet Oral , Taking Sertraline HCl 100 MG Tablet TAKE 1 TABLET BY MOUTH EVERY DAY , Medication List reviewed and reconciled with the patient * Allergies: N .K.D.A. Objective: * Vitals: * Examination: P sychiatry: Appearance: w ell-groomed. Abnormal body movements: n one. Affect / mood: a ppropriate. Attention: g ood. Attitude: c ooperative. Homicidal ideation: n one. Suicidal ideation: n one. Degree of awareness of surroundings: w ithin normal limits.? Delusions: n o. Hallucinations: n o. Insight: g ood. Judgement: g ood. Orientation: a wake, alert and oriented x 3. Perceptual disorders: n o perceptual disorder noted. Psychomotor activity: w ithin normal range. Speech / language: n ormal rate, volume, and articulation (RVR), clear and coherent. Thought content: a ppropriate. Thought process: i ntact. Assessment: * Assessment: 1. G eneralized anxiety disorder - F41.1 (Primary) 2 . M ajor depressive disorder, recurrent, moderate - F33.1 Plan: * Treatment: 2. O thers Notes: Stable, continue current medication. Refill sent in [...] If they persist please contact the office. * Procedure Codes: 9 6127 BEHAV ASSMT W/SCORE & DOCD/STAND INSTRUMENT, G2211 VISIT COMPLEXITY INHERENT TO ONGOING CARE RELATED TO A PATIENT'S SINGLE, SERIOUS CONDITION OR A COMPLEX CONDITION, G8431 CLIN DEPRESSION SCREEN DOC, 1124F ACP DISCUSS-NO DSCNMKR DOCD * Follow Up: 4 Months (Reason: medication follow up) * Billing Information: * Visit Code: 72647 OFFICE OUTPATIENT VISIT 15 MINUTES EXPANDED HISTORY AND EXAM/LOW MEDICAL DECISION MAKING. * Procedure Codes: 53653 BEHAV ASSMT W/SCORE & DOCD/STAND INSTRUMENT. G2211 VISIT COMPLEXITY INHERENT TO ONGOING CARE RELATED TO A PATIENT'S SINGLE, SERIOUS CONDITION OR A COMPLEX CONDITION. G8431 CLIN DEPRESSION SCREEN DOC. 1124F ACP DISCUSS-NO DSCNMKR DOCD. * Sign off status: Completed true * Provider: CALLUM MCDOWELL Date: 0 03/31/2024 Generated for Moni fuller/Dejan/Jujusmitting on: 0 10/07/2024 07:48 AM CDT History and Physical Notes * HPI (History of Present Illness) Category Sub-Category Detail Notes Category Not es History of Presenting Problem Anxiety Rates anxiety 2/10 with 10 b eing most severe. Here for follow up. No medication changes made last apt. Reports he is doing well. Anxiety is stable, stuff doesnt get to me like it used to . Denies any residual anxiety. Mood has been fair, although reports low energy. His cardiac doctor wants him to do a sleep study, planning to do one at home. He had a heart monitor and was bradycardiac (30 bpm) during sleep. He is getting about 7 hours nightly. Appetite is improving, no recent weight loss. Depression Rates depression 2/1 0 with 10 being most severe. Denies SI. Substance abuse marijuana Suicidal ideation denies Sleep disturbance Pending sleep evalua tion Psychosis no hx psychosis Mood lability no hx marian Past Psychiatric Hospitalizations Previous psychiatric hospitalizations Previous Psychiatric Hospitalization: No Social hx: . Has one son who lives with him. 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 Medical hx: Cancer (lung, tongue), HTN, high cholesterol Past psychiatric hx- Hx ECT/TMS/esketamine: none Past IPBH admissions/IOP/PHP: none Previous suicide attempts: denies Previous self-harming: denies Family psychiatric hx: none he is aware of Previous medications: escitalopram Depression screening PHQ-9 Little inte rest or pleasure in doing things: Several days Feeling down, depressed, or hopeless: Se veral days Trouble falling or staying asleep, or sl eeping too much: Several days Feeling tired or having little energy: S everal days Poor appetite or overeating: Several day s Feeling bad about yourself o r that you are a failure, or have let yourself or your family down: Not at all Trouble concentrating on thi ngs, such as reading the newspaper or watching television: Not at all Moving or speaking so slowly that other people could have noticed; or the opposite, being so fidgety or restless that you have been moving around a lot more than usual: Several days Thoughts that you would be b chitra off or of hurting yourself in some way: Not at all Total Score: 6 Interpretation: Mild Depression Intervention Depression Screening Findings: P ositve Follow-Up for Depression: Management of mental health treatment Additional Evaluation for Depression: Ps ychiatric interview and evaluation Name of the standardized too l used for adult depression screening:: Patient Health Questionnaire (PHQ-9) Depression Screening PHQ-2 (2015 Edition) Little interest or pleasure in doing things?: Several days Feeling down, depressed, or hopeless?: S everal days Total Score: 2 CESAR-7 (2018 Edition) Feeling nervous, anxious, o r on edge: Several days Not being able to stop or control worryi ng: Not at all Worrying too much about different things : Several days Trouble relaxing: Not at all Being so restless that it is hard to sit still: Not at all Becoming easily annoyed or irritable: Se veral days Feeling afraid as if something awful vane ht happen: Not at all Total CESAR-7 Score: 3 Interpretation of Total: (0 to 4) No Anx iety Examination Category Sub-Category Detail Notes Category Not es Psychiatry Appearance: well-groomed Attitude: cooperative Psychomotor activity: within normal rang e Abnormal body movements: none Attention: good Degree of awareness of surroundings: wit hin normal limits Orientation: awake, alert and tino ented x 3 Affect / mood: appropriate Speech / language: normal rate, volume, and articulation (RVR), clear and coherent Insight: good Judgement: good Thought process: intact Thought content: appropriate Perceptual disorders: no perceptual diso rder noted Suicidal ideation: none Homicidal ideation: none Delusions: no Hallucinations: no
--- OUTSIDE RECORDS SUMMARY | 2024-10-07 07:49 | XMS_ITS | Clinical Summary ---
Author Organization [facility] Address [address] [place] [address] Care Team Providers Care Labor Relations Manager Name Role Phone Alejandro Brand Primary Care Provider [phone] Source Comments [facility],non-owned Affiliates and Associated Physician Practices is amultiple site organization consisting of ambulatory clinics and hospital sitesin [place], [place], [place] and [place]. This disclosure is being madepursuant to the Care Everywhere program and may not contain all information available regarding this patient. Last updated 18.[facility] Allergies No known active allergies Medications * Be aware that medications may not be up to date on this document. Alwaysverify current medications with the patient. Medication Sig Dispensed Refills Start Date End Date Status escitalopram (LEXAPRO) 20 MG tablet Take 10 mg by mouth once daily after lunch 1 02/27/2019 Active rosuvastatin (CRESTOR) 40 MG tablet Take 1 (one) tablet by mouth once daily after lunch 0 03/06/2019 Active tamsulosin (FLOMAX) 0.4 MG capsule Take 1 (one) capsule by mouth once daily after lunch 1 05/13/2019 Active lisinopril (PRINIVIL; ZESTRIL) 2.5 MG tablet Take 1 (one) tablet by mouth once daily 07/15/2019 Active metoprolol succinate XL 24hr (TOPROL XL) 25 MG tablet Take 1 (one) tablet by mouth once daily 10/31/2019 Active multivitamin daily tablet Take 1 (one) tablet by mouth daily with food Active Nutritional Supplements (BOOST PLUS) LIQD Take 2 bottles by mouth once daily Active gabapentin (NEURONTIN) 300 MG capsule Take 1 (one) capsule by mouth at bedtime 10/27/2021 Active predniSONE (Deltasone) 10 MG tablet Take 1 (one) tablet by mouth as directed Active Active Problems Problem Noted Date Diagnosed Date 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 (FLUAD QUADRIVALENT; 65Y+) (AIIV4) 04/25/2020 PNEUMOCOCCAL PPSV23 04/25/2020 Social History Tobacco Use Types Packs/Day Years Used Date Smoking Tobacco: Former Cigarettes 1.3 35 1 977 - 2011 Smokeless Tobacco: Never Tobacco Cessation:Counseling Given: Not Answered Alcohol Use Standard Drinks/Week Comments Yes 24 (1 standard drink = 0.6 oz pu re alcohol) Sex and Gender Information Value Date Recorded Sex Assigned at Not on file Gender Identity Not on file Sexual Orientation Not on file Last Filed Vital Signs Vital Sign Reading Time Taken Comments Blood Pressure 139/69 06/30/2022 2:28 PM BRICK EXTRUDER OPERATOR Pulse 51 06/30/2022 2:28 PM BRICK EXTRUDER OPERATOR Temperature 36.7 C (98 F) 09/16/2021 2:23 PM BRICK EXTRUDER OPERATOR Respiratory Rate 9 01/22/2020 12:15 PM CDT Oxygen Saturation 97% 02/13/2020 1:13 PM CDT Inhaled Oxygen Concentration - - Weight 58.2 kg (128 lb 6.4 oz) 06/30/2022 2:28 PM BRICK EXTRUDER OPERATOR Height 180.3 cm (5' 11 ) 06/30/2022 2:28 PM BRICK EXTRUDER OPERATOR Body Mass Index 17.91 06/30/2022 2:28 PM BRICK EXTRUDER OPERATOR Plan of Treatment Health Maintenance Due Date Last Done Comments COLOGUARD (AGES 45-75) - COL ON CA SCREENING 1950 COLON MONITORING 1950 COLONOSCOPY - COLON CA SCREENING 1950 CT COLONOGRAPHY - COLON CA SCREENING 1950 Colorectal Cancer Screening 1950 FIT - COLON CA SCREENING 1952 FLEX SIG - COLON CA SCREENING 1950 MEDICARE AWV 12 MONTHS 1950 HEPATITIS C SCREENING 01/15/1970 DTAP/TDAP/TD VACCINES (1 - Tdap) 01/19/1971 LUNG CANCER SCREENING 01/19/2002 ZOSTER VACCINE (1 of 2) 01/19/2002 AAA SCREENING 01/19/2017 PNEUMOCOCCAL VACCINE 50+ (2 of 2 - PCV) 04/25/2021 04/25/2020 COVID-19 VACCINE (1 - 2023-2 5 season) 2024 INFLUENZA VACCINE (#1) 2024 2, 04/25/2020 DEPRESSION SCREENING 07/16/2024 Respiratory Syncytial Virus (RSV) Vaccine Pt: or over 60 yrs (1 - 1-dose 75+ series) 01/19/2027 HEPATITIS B VACCINE Aged Out No longe r eligible based on patient's age to complete this topic HIB VACCINE Aged Out No longer eligi ble based on patient's age to complete this topic HPV VACCINE Aged Out No longer eligi ble based on patient's age to complete this topic MENINGOCOCCAL (Group B) VACCINE SHARED DECISION-MAKING Aged Out No longer eligible based on patient's age to complete this topic MENINGOCOCCAL GROUPS A/C/Y/W VACCINE Aged Out No longer eligible b ased on patient's age to complete this topic Advance Directives * Full Code (Latest Code Status on File) Date Activated Date Inactivated Comments 06/24/2019 9:35 AM 06/27/2019 3:47 PM * Full Code Date Activated Date Inactivated Comments 05/22/2019 7:57 PM 05/23/2019 12:57 PM Care Teams Labor Relations Manager Relationship Specialty Start Date End Date Alejandro Brand DO [address] [place], [place] [id number] PCP - General 01/27/22
--- OUTSIDE RECORDS SUMMARY | 2024-10-07 07:49 | XMS_ITS ---
Author Organization [facility] Address [address] [place] [address] Care Team Providers Care Cloth Reeler Name Role Phone Matt Ulrich MD Primary Care Provider Krysta Stockton Unavailable [phone] Allergies No Known Allergies REASON FOR VISIT [...] please cancel any previous remaining scripts Active Tamsulosin HCl 0.4 MG Oral 11/29/2023 Active Diclofenac Sodium 75 MG Oral 11/29/2023 Active Gabapentin 400 MG Oral 11/29/2023 A ctive Lisinopril 2.5 MG Oral 11/29/2023 A ctive Rosuvastatin Calcium 40 MG Oral 11/29/2023 Active Social History Sex Assigned At : Social History Observation Description Sex Assigned At Male Household Question Answer Notes Marital status: Encounters Encounter Location Date Provider Diagnosis [facility] [address] [place] [address] 07/31/2024 Krysta Carter Generalized anxiety disorder F41.1 and Major depressive disorder, recurrent, moderate F33.1 Assessments Encounter Date Diagnosis (ICD Code) Assessment Notes Treatment Notes Treatment Clinical Notes Section Notes 07/31/2024 Generalized anxiety disorder (ICD-10 - F41.1) SSRI/SNRI side effects discussed including but not limited to, gastric upset, nausea, vomiting, diarrhea and/or constipation, weight changes, sexual side effects including loss of libido, increased suicidal thoughts/behavi ors in children and young adults, and serotonin syndrome. 07/31/2024 Major depressive disorder, recurrent, moderate (ICD-10 - F33.1) 07/31/2024 Other Increase sertraline to 150mg daily [...] effects of psychotropic medications. -Crisis prevention hotline 908. Plan Of Treatment Medication Medication Name Sig Start Date Stop Date Notes Sertraline HCl 100 MG 1.5 tablet Oral On ce a day for 90 days dose increase, pleas e cancel any previous remaining scripts Treatment Notes Assessment Notes Generalized anxiety disorder SSRI/SNRI s ying effects discussed including but not limited to, gastric upset, nausea, vomiting, diarrhea and/or constipation, weight changes, sexual side effects including loss of libido, increased suicidal thoughts/behaviors in children and young adults, and serotonin syndrome. Other Increase sertraline to 150mg daily for anxiety Patient educated on all medications including potential benefits, side effects, risks. Educated on proper dosing schedule and importance of compliance. Next Appt Details Follow Up: 4 Months, Reason: medication follow up Provider Name:Krysta Carter, 11/27/2024 02:30:00 PM, [facility], [facility] [address], [place], [address], Progress Notes * MAMADOU DAVID DDOB: [birth year] (74 yo M)Acc No.[id number]:07/31/2024 Patient: Alejandra MAMADOU LOFTON Provider: RIYA MCDOWELLHNP :1950 A ge:74 Y S ex:Male Date:07/31/2024 Address:[address] [place] [address], [facility] Pcp:Matt Ulrich MD Subjective: * Chief Complaints: * F ollow up * HPI: H istory of Presenting Problem: Anxiety R ates anxiety 2/10 with 10 being most severe..?Depression R ates depression 2/10 with 10 being most severe. Denies SI. . M ood lability n o hx marian. P sychosis n o hx psychosis. S leep disturbance P ending sleep evaluation . S uicidal ideation d enies. S ubstance abuse m arijuana. Here for follow up. No medication changes made last apt. He has a hand contracture, planning to get a surgery on this. Also recent dx of NILAM, awaiting for CPAP. Anxiety is overall stable, avoids talking to others about politics and watching the news. Denies major stressors. No panic attacks. Mood is good, not feeling overly depressed. Sleep is fair, about 7 hours nightly. Appetite is fair. P ast Psychiatric Hospitalizations: Previous psychiatric hospitalizations P revious Psychiatric Hospitalization N o. Social hx: . Has one son who lives with him. 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 Medical hx: Cancer (lung, tongue), HTN, high cholesterol Past psychiatric hx- Hx ECT/TMS/esketamine: none Past [facility]BH admissions/IOP/PHP: none Previous suicide attempts: denies Previous self-harming: denies Family psychiatric hx: none he is aware of Previous medications: escitalopram. D epression Screening: PHQ-2 (2015 Edition) L ittle interest or pleasure in doing things? S everal days, F eeling down, depressed, or hopeless? S everal days, T otal Score 2 . G AD-7 (2018 Edition) F eeling nervous, anxious, or on edge S everal days, Not being able to stop or control worrying S everal days, W orrying too much about different things S everal days, T rouble relaxing S everal days, B eing so restless that it is hard to sit still S everal days, B ecoming easily annoyed or irritable S everal days, F eeling afraid as if something awful might happen N ot at all, T otal CESAR-7 Score?6, I nterpretation of Total ( 5 to 9) Mild. D epression screening: PHQ-9 L ittle interest or pleasure in doing things S everal days, F eeling down, depressed, or hopeless S everal days, T rouble falling or staying asleep, or sleeping too much S everal days, F eeling tired or having little energy S everal days, P oor appetite or overeating S everal , F eeling bad about yourself or that you are a failure, or have let yourself or your family down S everal days, T rouble concentrating on things, such as reading the newspaper or watching television S everal , M oving or speaking so slowly that other people could have noticed; or the opposite, being so fidgety or restless that you have been moving around a lot more than usual N early every day, T houghts that you would be better off or of hurting yourself in some way N ot at all, T otal Score 1 0, I nterpretation M oderate Depression. I ntervention D epression Screening Findings P ositve, F ollow-Up for Depression M ental health treatment assessment, Patient follow-up to return when and if necessary, S uicide Risk Assessment Performed , A dditional Evaluation for Depression P sychiatric interview and evaluation,?Name of the standardized tool used for adult depression screening: P [facility] Health Questionnaire (PHQ-9). * ROS: P sychiatric: Patient denies s uicidal thoughts, marian, psychosis, auditory / visual hallucinations, delusions, psychosis, irritability, panic attacks, difficulty concentrating. P atient complains of m ild anxiety . Heaven dodd [facility] for details. * Medical History: * Surgical History: R econstructive surgery 02/07/2020Any surgical history 02/20/2014 * Hospitalization/Major Diagno stic Procedure: * Family History: 1 son(s) . . * Social History: M igrated Social History: M igrated Social History: Alcohol Intake: Moderate 02/09/2023,Tobacco Years: Former smoker 01/31/2023. H ousehold: H ousehold M arital status: d ivorced. M iscellaneous: O ccupation: retired. * Medications: T akingGabapentin 400 MG Capsule Oral Lisinopril 2.5 MG Tablet Oral Rosuvastatin Calcium 40 MG Tablet Oral Tamsulosin HCl 0.4 MG Capsule Oral Diclofenac Sodium 75 MG Tablet Delayed Release Oral amLODIPine Besylate 5 MG Tablet Oral Sertraline HCl 100 MG Tablet 1 tablet Oral Once a day Medication List reviewed and reconciled with the patientTaking Gabapentin 400 MG Capsule Oral Taking Lisinopril 2.5 MG Tablet Oral Taking Rosuvastatin Calcium 40 MG Tablet Oral Taking Tamsulosin HCl 0.4 MG Capsule Oral Taking Diclofenac Sodium 75 MG Tablet Delayed Release Oral Taking amLODIPine Besylate 5 MG Tablet Oral Taking Sertraline HCl 100 MG Tablet 1 tablet Oral Once a day Medication List reviewed and reconciled with the patient * Allergies: N .K.D.A.no[Allergies Verified] Objective: * Vitals: * Examination: P sychiatry: Dementia S afety concern screening for dangerousness to self and environment risks provided: Y esWhat action was taken to mitigate the risk? E ducation providedTopics discussed for environmental risks: H ome safety risks that could arise from cooking or smoking, Access to firearms or other weapons, Access to potentially dangerous chemicals and other materialsTopics discussed for dangerousness to self: M edication misuse, Financial mismanagementSafety concern mitigation recommendation provided: N ot requiredScreening Result: N egativeCaregiver education and support provided Y es. Appearance: w ell-groomed. Abnormal body movements: n [...] content: a ppropriate. Thought process: i ntact. F unctional Assessment: Bowen Index of ADL S core: 6 1 point for independence, 0 for help. Physical Functioning P ersonal hygiene: including combing hair, brushing teeth, shaving, applying makeup, washing/drying face and hands (exclude baths and showers) I ndependentBathing: how client takes full-body bath/shower or sponge bath (exclude washing of back and hair). Includes how each part of body is bathed: arms, upper and lower legs, chest, abdomen, perineal area. (code for most dependent episode in last 7 days) I ndependentDressing upper body: how client dresses and undresses (street clothes, underwear) above the waist, includes prostheses, orthotics, fasteners, pullovers, etc. I ndependentEating - Including taking in food by any method, including tube feedings I ndependentToilet use: including using the toilet room or commode, bedpan, urinal, transferring on/off toilet, cleaning self after toilet use or incontinent episode, changing pad, managing any special devices required (ostomy or catheter), and adjusting clothes. I ndependentTransfer: including moving to and between surfaces--to/from bed, chair, wheelchair, standing position (excludes to/from bath/toilet) I ndependentContinence: I ndependent (1). 1 point for independence, 0 for help. Assessment: * Assessment: 1. G eneralized anxiety disorder - F41.1 (Primary) 2 . M ajor depressive disorder, recurrent, moderate - F33.1 Plan: * Treatment: 2. O thers Notes: Increase sertraline to 150mg daily for anxiety Patient educated on all medications including potential benefits, side effects, risks. Educated on proper dosing schedule and importance of compliance. Clinical Notes: -Assessment and treatment plan reviewed with patient. -Compliance with treatment plan importance discussed. -Discussed the risks/benefits of this medication -Discussed medication side effects. -Contact office if symptoms worsen. -Discussed that it can take up to 6-8 weeks to see full therapeutic effects of psychotropic medications. -Crisis prevention hotline 898. * Procedure Codes: 9 6127 BEHAV ASSMT W/SCORE & DOCD/STAND [id number] VISIT COMPLEXITY INHERENT TO ONGOING CARE RELATED TO A PATIENT'S SINGLE, SERIOUS CONDITION OR A COMPLEX [id number] CLIN DEPRESSION SCREEN DOC * Preventive Medicine: Counseling: S afety: f all risk / avoidance: Y es. Screenings: F all risk screening F all Risk Assessment: N o falls in the past year. * Follow Up: 4 Months (Reason: medication follow up) * Billing Information: * Visit Code: 46404 OFFICE OUTPATIENT VISIT 25 MINUTES DETAILED HISTORY AND EXAM/MODERATE MEDICAL DECISION MAKING. * Procedure Codes: 97495 BEHAV ASSMT W/SCORE & DOCD/STAND INSTRUMENT. G2211 VISIT COMPLEXITY INHERENT TO ONGOING CARE RELATED TO A PATIENT'S SINGLE, SERIOUS CONDITION OR A COMPLEX CONDITION. G8431 CLIN DEPRESSION SCREEN DOC. * LE TENDER Sign off status: Completed true * Provider: CALLUM MCDOWELL Date: 0 07/31/2024 Generated for Moni fuller/Dejan/Mary on: 0 10/07/2024 07:48 AM CDT History and Physical Notes * HPI (History of Present Illness) Category Sub-Category Detail Notes Category Not es History of Presenting Problem Anxiety Rates anxiety 2/10 with 10 b eing most severe. Here for follow up. No medication changes made last apt. He has a hand contracture, planning to get a surgery on this. Also recent dx of NILAM, awaiting for CPAP. Anxiety is overall stable, avoids talking to others about politics and watching the news. Denies major stressors. No panic attacks. Mood is good, not feeling overly depressed. Sleep is fair, about 7 hours nightly. Appetite is fair. Depression Rates depression 2/1 0 with 10 being most severe. Denies SI. Substance abuse marijuana Suicidal ideation denies Sleep disturbance Pending sleep evalua tion Psychosis no hx psychosis Mood lability no hx marian Past Psychiatric Hospitalizations Previous psychiatric hospitalizations Previous Psychiatric Hospitalization: No Social hx: . Has one son who lives with him. 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 Medical hx: Cancer (lung, tongue), HTN, high [...] have let yourself or your family down: Several days Trouble concentrating on thi ngs, such as reading the newspaper or watching television: Several days Moving or speaking so slowly that other people could have noticed; or the opposite, being so fidgety or restless that you have been moving around a lot more than usual: Nearly every day Thoughts that you would be b chitra off or of hurting yourself in some way: Not at all Total Score: 10 Interpretation: Moderate Depression Intervention Depression Screening Findings: P ositve Follow-Up for Depression: [facility] treatment assessment, Patient follow-up to return when and if necessary Suicide Risk Assessment Performed: Additional Evaluation for De pression: Psychiatric interview and evaluation Name of the standardized [...] able to stop or control worryi ng: Several days Worrying too much about different things : Several days Trouble relaxing: Several days Being so restless that it is hard to sit still: Several days Becoming easily annoyed or irritable: Se veral days Feeling afraid as if something awful vane ht happen: Not at all Total CESAR-7 Score: 6 Interpretation of Total: (5 to 9) Mild Examination Category Sub-Category Detail Notes Category Not [...] Homicidal ideation: none Delusions: no Hallucinations: no Dementia Safety concern scree katrin for dangerousness to self and environment risks provided:: Yes What action was taken to mitigate the risk?: Education provided Topics discussed for environmental risks:: Home safety risks that could arise from cooking or smoking, Access to firearms or other weapons, Access to potentially dangerous chemicals and other materials Topics discussed for dangerousness to self:: Medication misuse, Financial mismanagement Safety concern mitigation recommendation provided:: Not required Screening Result:: Negative Caregiver education and support provided : Yes Functional Assessment Bowen Index of ADL Score:: 6 1 point for independence, 0 for help 1 point for independence, 0 for help Physical Functioning Personal hygiene: i ncluding combing hair, brushing teeth, shaving, applying makeup, washing/drying face and hands (exclude baths and showers): Independent Bathing: how client takes fu ll-body bath/shower or sponge bath (exclude washing of back and hair). Includes how each part of body is bathed: arms, upper and lower legs, chest, abdomen, perineal area. (code for most dependent episode in last 7 days): Independent Dressing upper body: how cli ent dresses and undresses (street clothes, underwear) above the waist, includes prostheses, orthotics, fasteners, pullovers, etc.: Independent Eating - Including taking in food by any method, including tube feedings: Independent Toilet use: including using the toilet room or commode, bedpan, urinal, transferring on/off toilet, cleaning self after toilet use or incontinent episode, changing pad, managing any special devices required (ostomy or catheter), and adjusting clothes.: Independent Transfer: including moving t o and between surfaces--to/from bed, chair, wheelchair, standing position (excludes to/from bath/toilet): Independent Continence:: Independent (1)
--- OUTSIDE RECORDS SUMMARY | 2024-10-07 07:49 | XMS_ITS | Referral Summary ---
Author Organization [facility] Address [address] [place] [address] Care Team Providers Care Straight Knife Machine Cutter Name Role Phone Francois Corona MD Primary Care Provider [phone] Allergies No known active allergies Medications amLODIPine (NORVASC) 5 mg tablet TK 1 T PO QD UTD 2 02/11/2018 Active escitalopram (LEXAPRO) 20 mg tablet 10 mg 2 02/03/2018 Active rosuvastatin (CRESTOR) 20 mg tablet TK 1 T PO QD 1 02/08/2018 Active tamsulosin (FLOMAX) 0.4 mg extended release capsule TK 1 C PO QD 4 02/07/2018 Active azithromycin (ZITHROMAX) 250 mg tablet TK 1 T PO QAM 0 01/31/2019 Active sulfamethoxazol e-trimethoprim (BACTRIM DS,SEPTRA DS) 800-160 mg per tablet TK 1 T PO BID 0 03/04/2019 Active traMADol (ULTRAM) 50 mg tablet TK 1 T PO EVERY 6 HOURS PRN 0 03/04/2019 Active rosuvastatin (CRESTOR) 40 mg tablet TK 1 T PO QD 0 03/06/2019 Active amoxicillin-cla vulanate (AUGMENTIN) 875-125 mg per tablet Take 875 mg by mouth 01/30/2020 Active amoxicillin-cla vulanate (AUGMENTIN) 875-125 mg per tablet TK 1 T PO BID WITH THE MORNING AND SHAYLA MEAL 01/30/2020 Active chlorhexidine (PERIDEX) 0.12 % solution SWISH AND SPIT QID FOR 7 DAYS 01/22/2020 Active HYDROcodone-ania taminophen (NORCO) 5-325 mg per tablet Take 1 tablet by mouth every 4 (four) hours as needed 01/22/2020 Active HYDROcodone-ania taminophen (NORCO) 5-325 mg per tablet TK 1 T PO Q 4 H PRN 01/22/2020 Active icosapent ethyL (Vascepa) 0.5 gram capsule TK 4 CS PO BID 01/28/2020 Active lisinopriL (PRINIVIL,ZESTR IL) 2.5 mg tablet Take 2.5 mg by mouth daily 07/15/2019 Active Vascepa 0.5 gram capsule TK 4 CS PO BID 03/12/2020 Active lisinopriL (PRINIVIL,ZESTR IL) 2.5 mg tablet 03/30/2020 Active metFORMIN (GLUCOPHAGE) 500 mg tablet Take 250 mg by mouth 2 (two) times a day 07/15/2019 Active metoprolol XL (TOPROL-XL) 25 mg extended release tablet Take 25 mg by mouth daily 10/31/2019 Active metoprolol XL (TOPROL-XL) 25 mg extended release tablet 03/30/2020 Acti ve gabapentin (NEURONTIN) 100 mg capsule Take 100 mg by mouth nightly 03/07/2021 Active multivitamin with minerals tablet Take 1 tablet by mouth 3 (three) times a day with meals Active food supplemt, lactose-reduced (Boost Plus) 0.06 gram- 1.5 kcal/mL liquid Take 1 Bottle by mouth daily Active Active Problems No known active problems Social History Tobacco Use Types Packs/Day Years Used Date Smoking Tobacco: Former Smokeless Tobacco: Never Sex and Gender Information Value Date Recorded Sex Assigned at Not on file 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 Gender Identity Not on file Sexual Orientation Not on file Last Filed Vital Signs Vital Sign Reading Time Taken Comments Blood Pressure 153/77 03/31/2021 12:38 PM CDT Pulse 56 03/31/2021 12:38 PM CDT Temperature 36.2 C (97.1 F) 03/31/2021 12:38 PM CDT Respiratory Rate 18 03/31/2021 12:38 PM CDT Oxygen Saturation 98% 03/31/2021 12:38 PM CDT Inhaled Oxygen Concentration - - Weight 57.7 kg (127 lb 3.2 oz) 03/31/2021 12:38 PM CDT Height 177.8 cm (5' 10 ) 03/31/2021 12:38 PM CDT Body Mass Index 18.25 03/31/2021 12:38 PM CDT Plan of Treatment Not on file Insurance [facility] REF [facility] Address: [address] [address] [place] [address] MEDICARE [employer] SENIOR SUPPLEMENT [address] [place], [place] [address]R HMO REF Care Teams Straight Knife Machine Cutter Relationship Specialty Start Date End Date Francois Corona MD [address] [place] [address] PCP - General Internal Medicine 03/31/21
--- OUTSIDE RECORDS SUMMARY | 2024-10-07 07:49 | XMS_ITS | Clinical Summary ---
Author Organization [facility] Address [address] [place] [address] Care Team Providers Care Psychiatric Nursing Assistant Name Role Phone Francois Corona MD Primary Care Provider [phone] Allergies No known active allergies Medications amLODIPine [...] Active Active Problems No known active problems Surgical History Surgery Date Site/Laterality Comments [place] TONSILLECTOMY PRIMARY/SEC ONDARY <AGE 14 Tonsillectomy - (Added by TW Conv) Medical History Medical History Date Comments Personal history of other en docrine, nutritional and metabolic disease History of hyperchol esterolemia - (Added by TW Conv) Personal history of other di seases of the circulatory system History of hypertension - (A dded by TW Conv) 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) Personal history of other me ntal and behavioral disorders History of depression - (Add ed by TW Conv) Family History Medical History Relation Name Comments Lung cancer Brother Family history of lung cancer - (Added by TW Conv) Lung cancer Mother Family history of lung cancer - (Added by TW Conv) Relation Name Status Comments Brother Mother Social History Tobacco Use Types Packs/Day Years Used Date Smoking Tobacco: Former Smokeless Tobacco: Never Sex and Gender Information Value Date Recorded Sex Assigned at Not on file Legal Sex Male 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 [address] [place] [address] [employer] SENIOR SUPPLEMENT [address] [place] HMO REF [facility] MEDICARE Address: [address] [address] [place] [address] Care Teams Psychiatric Nursing Assistant Relationship Specialty Start Date End Date Francois Corona MD [address] [place] [address] PCP - General Internal Medicine 03/31/21
--- OUTSIDE RECORDS SUMMARY | 2024-10-07 07:49 | XMS_ITS ---
Author Organization [facility] Address [address] 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 Past Plans No past plan information found. Radiation Treatments * No radiation treatments are documented for this patient in [facility]. Treatments may have been administered in another system. Treatment Summaries FOM (cancer of floor of mouth) ([facility])* Images from the original note were not included. 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 Hernan Dickinson at [facility] Initial Imaging CT neck w/ contrast performed at [facility] on 05/13/19: Impression: No evidence of metastatic disease. Radiation Information N/A Chemotherapy Information N/A Tracheostomy/Laryngectomy Trachesostomy: No G-tube: No Other Information Clinical Trials: N/A Pre-treatment Weight: 142 lbs Post-Treatment Weight: 140 lbs Psychosocial needs: none identified Possible Late Effects of Your Cancer Treatment Difficulty swallowing Difficulty eating Shoulder weakness Dry mouth (xerostomia) Cancer Surveillance Schedule You will be seen more frequently the earlier you are in your surveillance plan. Every patient will have an individualized follow up schedule based on recommendations from national cancer organizations and your specific post- treatment course. Clinical visit with Radiation Oncology, Medical Oncology & Surgeon 1ST year every 1-3 months 2nd year every 3-6 months 3rd-5th year every 3-12 months after 5th year at least annually Imaging Within 6 months of therapy completed and thereafter every 6-12 months TSH level Annually Reasons to call: New lesions New neck masses New ear pain New problems with voice or swallowing Unintended weight loss Cough that does not go away New feelings of sadness or being overwhelmed Late Effects to monitor Thyroid function: annual thyroid function blood tests Carotid artery stenosis: discuss with PCP about evaluation Dental health Your follow up schedule is listed below Future Appointments Date Time Provider Department Center 11/07/2019 1:15 PM Hernan Dickinson MD [facility] Contact Information Dr. Hernan Dickinson: Nurse: Ingrid Stovall : Nurse Practitioner: Mera Urrutia: Radiation Oncologist N/A Medical Oncologist N/A Social Work Wire Drawer Dr. Kayleigh Jimenez Dietitian Pastoral Care [facility] Hospital Scheduling Primary Care Provider Francois Corona MD [phone] Recommended cancer screenings Colonoscopy: every 10 years beginning at age 50 unless directed otherwise. Last colonoscopy: none per record Prostate Specific Antigen (PSA): Initial discussion with PCP about screening options at age 50. Further testing should be based on result and risk factors General Wellness Screening Blood Pressure: annually Weight: annually Lipids: Men age >= 35+ should be screened for lipid(cholesterol) disorder. Women age >= 45 should be screened for lipid(cholesterol) disorder Diabetes: Discuss with your primary care provider especially if you are overweight or have high blood pressure Bone Density: Women age >= 65 should be screened for osteoporosis Vision: No routine screening recommended. If you think your vision has changed, get a vision examination. Hearing: No routine screening recommended. If you think your hearing has changed, get a hearing examination. Dental: Dental examinations every 6 months are recommended. If you have had radiation, you should discuss fluoride treatments with your dentist. Staying Healthy Immunizations: Annual flu shot Tetanus booster every 10 years Diptheria booster if you haven???t had one Shingles vaccine at age 60 if you have had chicken pox Pneumonia vaccine at ages between 19-64 if chronically ill; at age 65 for all people Sun Exposure: Wear sunscreen daily. Apply liberally when outside and wear protective clothing. Nutrition: A healthy weight and a balanced diet will Tobacco: Avoid all tobacco and vapor products. If you have not been able to quit, ask for help. Alcohol: Moderate alcohol intake is acceptable. If you think you drink too much, we can help you find resources to help you quit. Drugs: Illegal drugs should be avoided. If you use any of these substances, ask for help with stopping. Activity: Staying active helps your heart, your lungs, and your immune system. Take every opportunity to walk a few extra steps. Important Resources [facility] cancercenter.[facility] German Cancer Society cancer.org [place] Head and Neck Society headandneckcancer.org Association of Cancer Online Resources acor.org Caring Bridge caringbridge.org International Association of Laryngectomees theial.com/ial The Oral Cancer Foundation oralcancerfoundation.org Support for People with Oral and Head and Neck Cancer spohnc.org Head and Neck Cancer [place] headandneck.org CancerCare cancercare.org LiveStrong Foundation livestrong.org National Cancer [place] cancer.gov Cancer Survivors Network csn.cancer.org National Coalition for Cancer Survivorship canceradvocacy.org German Society of Clinical Oncologists cancer.net Cancer Support [facility] www.cancersupportstl.org Radiation Therapy Questions/Answers www.rtanswers.org Resolved Problems Problem Noted Date Diagnosed Date Resolved Date Oral cancer 03/05/2021
--- NOTE | 2024-10-10 21:18 | WPDSLEEPSTUD ---
Sleep Study Date of Study: 10/07/24 Ordering Provider: Primo Major APRN Interpreting Physician: Colleen Kovacs MD Sleep Study Type: BiPAP Titration Height: 1.78 m Weight: 59.874 kg Body Mass Index: 18.9 Neck Circumference (inches): 14 [place]: 11 Reason for Sleep Study * 05/08/2024 HST - AHI 34.2, central AHI 33.6, lowest saturation 82%, Fam-Salazar respirations 66.5% of the night He presents now for a CPAP titration. Sleep History Carmelo Yanes is 74 years old, had a BiPAP titration in October 07, 2024. This history is taken from his home sleep test on May 08, 2024 which showed severe central sleep apnea with Fam-Salazar respiration, the AHI was 34, central AHI was 33.6 desaturation to 82% and 66.5% the night with Fam-Salazar respiration.. His HST was ordered by his tube machine operator helper for bradycardia and has a history of central sleep. History also includes hypertension, history of lung cancer status post right upper lobectomy 2014, tongue cancer 2019 resected and reconstructed. He has a history of paroxysmal see supraventricular tachycardia and dyslipidemia. He does not wake at night with shortness of breath. He rarely awakens at night with heartburn, belching or coughing. He occasionally has trouble sleeping when he has a cold. He does not wake at night gasping for breath. He occasionally has breathing problems at night observed by others. He frequently sweats excessively at night. He denies having heart palpitations or irregular heartbeats during the night. He frequently falls asleep during the day but never while driving. He denies feeling paralyzed on falling or upon waking. He occasionally experiences vivid dreamlike scenes upon awakening or falling asleep. He does not have muscle weakness with strong emotion. He denies feeling afraid of going to sleep. He rarely has nightmares. He occasionally remembers his dreams. He occasionally has thoughts racing through his mind. He occasionally feels sad, depressed and anxious. He occasionally has muscular tension. He occasionally notices parts of his body jerk. He rarely has crawling and aching feelings in his legs. He rarely has leg pain during the night. He rarely grinds his teeth during sleep but never awakens with morning jaw pain. He is frequently bothered by pain during the day but rarely awakened by pain during the night. He occasionally wakes up feeling stiff in the morning. He rarely wakes up with sore or achy muscles. He occasionally wakes up with pain in the neck, spine and other joints. Normal bedtime is between 1:00 a.m. to 2:00 a.m., and the amount of time to fall asleep varies. He wakes 2-3 times during the night to urinate, returns to sleep within a few minutes. He does not have a set wake up time. He typically gets 6-7 hours of sleep per night. He stays in bed 5 minutes after waking in the morning. He is currently living with his adult son. He takes naps in the afternoon the evening, an a short nap lasting 10 to 15 minutes may be refreshing. Habits: Tobacco: former smoker, quit 11 years ago. Caffeine: 16 oz of caffeinated tea per day. Alcohol: 2-3 bottles of beer per day. Recreational substances: marijuana 3-4 times per week PMFSH Past Medical History Medical History Colon cancer screening History of lung cancer 2011 History of actinic keratoses History of basal cell carcinoma (BCC) Surgical History Surgical History History of radical neck dissection History of lung surgery History of removal of cyst testicle removed 03/2019 Family History Family History Father Family history of diabetes mellitus in first degree relative Social History Social History Smoking packs per day: 1 Smoking cigarettes per day: 20.0 Years smoked: 40 Smoking pack-years: 40.00 Smoking status: Former smoker Tobacco type: cigarettes Alcohol intake: current Drinks per week: 12 Substance use: current Substance use type: marijuana Other substance usage details: 3 or 4 times a week. Lack of Transportation: No Lack of Food: Never True Current Housing: I Have Housing Concerned About Future Housing: No Difficulty Paying Gas/Electric Bills: No Difficulty Paying for Meds: No Currently Unemployed: No Education: High School Diploma/GED Difficulty w/ Childcare or Family Care: No Living arrangements: with family Spiritual care concerns: No Medications Home Medications ?Medication ?Instructions ?Recorded ?Confirmed ?Type multivitamin,[id number] capsule 1 cap PO DAILY 06/06/23 08/19/24 History amlodipine 5 mg tablet See Rx Instructions .Route 05/22/24 08/19/24 Rx .COMPLEX #90 tabs sertraline 100 mg tablet 150 mg PO DAILY 08/19/24 08/19/24 History eszopiclone 2 mg tablet 2 mg PO ONCE #1 tablet 08/21/24 Rx tamsulosin 0.4 mg capsule See Rx Instructions .Route 09/09/24 Rx .COMPLEX #90 caps rosuvastatin 40 mg tablet See Rx Instructions .Route 09/29/24 Rx .COMPLEX #90 tabs gabapentin 600 mg tablet 600 mg PO DAILY #90 tabs 10/17/24 Rx Sleep Procedure A full CPAP polysomnogram using the Eyetronics multi-channel system recorded the standard physiologic parameters including EEG, EOG, submentalis EMG, anterior tibialis EMG, EKG, body position, nasal and oral airflow using nasal pressure sensor and thermistor. Respiratory parameters of chest and abdominal movements were recorded with Respiratory Inductance Plethysmography belts. Oxygen saturation was recorded by pulse oximetry. Video monitoring was also performed. Sleep stages, periodic limb movements, and EEG arousals were scored in 30 second epochs according to the criteria of the AASM Scoring Manual. The Apnea-Hypopnea Index was calculated using CMS guidelines for definition of hypopnea while scoring respiratory events. The patient was started on CPAP using a medium ResMed AirFit N30 nasal mask with heated humidity, initial pressure was CPAP 5 cm, maximum pressure was BiPAP 14/8 with back up rate of 10. Sleep Architecture The total recording time was 483.4 minutes.? The total sleep time was 266.5 minutes. Sleep latency was 9.1 minutes. REM latency was 248.5 minutes. Sleep efficiency was 55.1%. The patient had 83 awakenings for an awakening index of 18.7. Wake after Sleep Onset time was 207.5 minutes. The patient spent 80.5 minutes, 30.2% of total sleep time in Stage N1. The patient spent 168.0 minutes, 63.0% in Stage N2. The patient spent 2.5 minutes, 0.9% in Stage N3. The patient spent 15.5 minutes, 5.8% in Stage REM. Respiratory Analysis The patient had 32 hypopneas, 1 obstructive apneas, 11 mixed apneas, and 148 central apneas for an overall Apnea Hypopnea Index of 43.0 events per hour. The REM Apnea Hypopnea Index was 3.9. The NREM Apnea Hypopnea Index was 45.4. The patient had a Central Apnea Hypopnea Index of 33.3. There were no Respiratory Effort Related Arousals. The Respiratory Disturbance Index is 49.3 events per hour. There was no evidence of Fam-Salazar Respirations. Arousals There were 156 total arousals for an arousal index of 35.1. There were 85 spontaneous arousals for an index of 19.1. ?There were 56 arousals due to respiratory events for an index of 12.6. There were 1 arousals due to periodic limb movements for an index of 0.2.? There were 15 arousals due to isolated limb movements for an index of 3.4. Periodic Limb Movements The patient had 29 isolated limb movements with an index of 6.5. The patient had 8 periodic limb movements with index of 1.8. Patient had a total of 37 limb movements with a total limb movement index of 8.3. Oximetry Data The patient had an average oxygen saturation of 95% in sleep with a minimum oxygen saturation of 90% and a maximum oxygen saturation of 99%. The patient had 137 oxygen desaturations that were 4% or greater resulting in an Oxygen Desaturation Index of 30.8.? The patient spent no sleep time with an oxygen saturation below 88%. Snoring Profile Snoring was noted, overall mild. Cardiac Profile The EKG showed normal sinus rhythm. The patient had an average pulse rate of 47 bpm with a minimum pulse rate of 35 bpm and a maximum pulse rate of 56 bpm. ? EEG Profile EEG was unremarkable, no evidence of seizures. Assessment and Plan Assessment and Plan (1) Central sleep apnea with Fam-Salazar respiration: Code(s): R06.3 - Periodic breathing Status: Acute Assessment and Plan: This Data The data obtained during this sleep study is adequate for interpretation. Certification This sleep study has been reviewed by a board certified sleep medicine physician.
[2024-10-22 21:37] VITALS: BMI 18.9
== END 2024-10-08 06:43 | disposition home or self-care (01) ==
PROVIDERS: PCP Family Medicine; Visit Provider Nurse Practitioner Family
DX: R06.3 Periodic breathing (principal)
CPT/HCPCS: 95811

== ENCOUNTER 2024-11-25 12:48 | Outpatient (CLI) | payer MEDICARE, SELFPAY ==
--- NOTE | 2024-11-25 | ECHO_ITS ---
Patient Info Name: Carmelo Yanes Age: 74 years : 1950 Gender: Male Ht: 70 in Wt: 128 lbs BSA: 1.68 m2 HR: 65 bpm BP: 178 / 89 mmHg Heart Rhythm: Bradycardia Technical Quality: Good Exam Date: 11/25/2024 1:15 PM Patient Status: O Admit Date: 11/25/2024 Exam Type: CA echo doppler color flow Study Info Indications Other forms of dyspnea - Complete two-dimensional, color flow and Doppler transthoracic echocardiogram is performed. Body Straightener: Raegan Wellington Attending Provider: Tammi PATINO Summary 1. Complete two-dimensional, color flow and Doppler transthoracic echocardiogram is performed. 2. Left ventricular chamber dimension is normal. 3. Left ventricular systolic function is normal, estimated at 50-55. 4. The left ventricular diastolic function is grade I diastolic dysfunction. 5. E/e' 20 is elevated. 6. Left atrial chamber dimension is moderately enlarged. 7. Right atrial chamber dimension is mildly enlarged. 8. There is mild aortic valve sclerosis. 9. There is moderate aortic valve regurgitation. 10. There is trace tricuspid valve regurgitation. 11. No pulmonary hypertension, estimated pulmonary arterial systolic pressure is 21 mmHg. Left Ventricle E/e' 20 is elevated. Left ventricular chamber dimension is normal. Left ventricular systolic function is normal, estimated at 50-55. The left ventricular diastolic function is grade I diastolic dysfunction. Right Ventricle Right ventricular chamber dimension is normal. Right ventricular systolic function is normal and with normal TAPSE 2.1 cm. Left Atria Left atrial chamber dimension is moderately enlarged. Right Atria Right atrial chamber dimension is mildly enlarged. Aortic Valve The aortic valve is trileaflet. There is mild aortic valve sclerosis. There is no aortic valve stenosis. There is moderate aortic valve regurgitation. Pulmonic Valve There is no pulmonic regurgitation. Mitral Valve There is no mitral valve stenosis. There is no mitral valve regurgitation. Tricuspid Valve There is trace tricuspid valve regurgitation. No pulmonary hypertension, estimated pulmonary arterial systolic pressure is 21 mmHg. Pericardium/Pleural There is no pericardial effusion. Inferior Vena Cava Normal inferior vena cava with >50% collapse upon inspiration consistent with normal right atrial pressure, 5 mmHg. Aorta The aortic root size at the sinus of Valsalva is normal. Left Ventricular Outflow Tract Name Value Normal LVOT 2D LVOT Diameter 2.0 cm LVOT Doppler LVOT Peak Velocity 109 cm/s LVOT Peak Gradient 5 mmHg LVOT Mean Gradient 2 mmHg LVOT VTI 21 cm LVOT VTI/AV VTI Ratio 0.6 LVOT Stroke Volume 63 ml LVOT CO 2.2 l/min LVOT CI 1.3 l/min/m2 Pulmonic Valve Name Value Normal RVOT Doppler RVOT Peak Velocity 64 cm/s RVOT Peak Gradient 2 mmHg PV Doppler PV Peak Velocity 137 cm/s PV Peak Gradient 8 mmHg Mitral Valve Name Value Normal MV Diastolic Function MV E Peak Velocity 66 cm/s MV A Peak Velocity 110 cm/s MV E/A 0.6 MV Decel Time (PW) 240 ms MV Annular TDI MV E/e' (Septal) 14.8 MV E/e' (Lateral) 34.9 MV E/e' (Average) 24.8 Tricuspid Valve Name Value Normal TV Regurgitation Doppler TR Peak Velocity 199 cm/s TR Peak Gradient 15 mmHg Estimated PAP/RSVP RA Pressure 5 mmHg <=5 PA Systolic Pressure 21 mmHg <36 RV Systolic Pressure 21 mmHg <36 TV Annular TDI TV Lateral Sonia s' Velocity 13.3 cm/s >=9.5 Aorta Name Value Normal Ascending Aorta Ao Root Diameter (MM) 3.7 cm Ao Root Diam Index (MM) 2.2 cm/m2 Aortic Valve Name Value Normal AV Doppler AV Peak Velocity 183 cm/s AV Peak Gradient 13 mmHg AV Mean Gradient 6 mmHg AV VTI 36 cm AV Area (Cont Eq VTI) 1.8 cm2 >=3.0 AV Area (Cont Eq Ruddy) 1.8 cm2 AV DI (Ruddy) 0.60 AV Regurgitation 2D LVOT Area 3.0 cm2 Ventricles Name Value Normal LV Dimensions 2D/MM IVS Diastolic Thickness (2D) 1.0 cm 0.6-1.0 LVID Diastole (2D) 5.7 cm 4.2-5.8 LVIW Diastolic Thickness (2D) 1.0 cm 0.6-1.0 LVID Systole (2D) 3.9 cm 2.5-4.0 LVOT Diameter 2.0 cm LV Mass (2D Cubed) 235.68 g 88.00-224.00 LV Mass Index (2D Cubed) 140 g/m2 49-115 Relative Wall Thickness (2D) 0.35 <=0.42 LV Fractional Shortening/Ejection Fraction 2D/MM LV Fractional Shortening (2D) 32 % 25-43 LV EF (2D Teichholz) 60 % LV Diastolic Volume (4C MOD) 92 ml LV EF (4C MOD) 58 % LV Diastolic Volume (2C MOD) 92 ml LV EF (2C MOD) 53 % LV Diastolic Volume (BP MOD) 99 ml 62-150 LV Diastolic Volume Index (BP MOD) 59 ml/m2 34-74 LV Systolic Volume (BP MOD) 46 ml 21-61 LV Systolic Volume Index (BP MOD) 27 ml/m2 11-31 LV EF (BP MOD) 54 % 52-72 LV Diastolic Length (4C) 7.6 cm LV Systolic Length (4C) 6.0 cm LV Stroke Volume (4C MOD) 53 ml Atria Name Value Normal LA Dimensions LA Dimension (MM) 4.0 cm 3.0-4.0 LA Volume (4C A-L) 74 ml LA Volume (BP A-L) 86 ml RA Dimensions RA Area (4C) 19.8 cm2 <=18.0 Report Signatures
--- OUTSIDE RECORDS SUMMARY | 2024-11-25 12:53 | XMS_ITS ---
Author Organization [facility] Address [address] 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 Past Treatment and Therapy Plans No past plan information found. Treatment Summaries FOM (cancer of floor of mouth) ([facility])* Images from the original note were not [...] dissection Surgeon/Facility Name: [facility] Hernan Dickinson at [facility] Initial Imaging CT neck w/ contrast performed at [facility] on 05/13/19: Impression: No evidence of metastatic [...] Center 11/07/2019 1:15 PM Hernan Dickinson MD [facility] Contact Information Dr. Hernan Dickinson: Nurse: Ingrid Stovall : Nurse Practitioner: Mera Meanstry: Radiation Oncologist N/A Medical Oncologist N/A Social Work Financial Institution Branch Manager Dr. Kayleigh Jimenez Dietitian Pastoral Care [facility] Hospital Scheduling Primary Care Provider Francois Corona MD [phone] Recommended cancer screenings Colonoscopy: every 10 years [...] walk a few extra steps. Important Resources [facility] [place] Cancer Society cancer.org [place] Head and Neck Society headandneckcancer.org Association of Cancer Online Resources acor.org Caring Bridge caringbridge.org International Association of Laryngectomees theial.com/ial The Oral Cancer Foundation oralcancerfoundation.org Support for People with Oral and Head and Neck Cancer spohnc.org Head and Neck Cancer [place] headandneck.org CancerCare cancercare.org LiveStrong Foundation livestrong.org National Cancer [place] cancer.gov Cancer Survivors Network csn.cancer.org National Coalition for Cancer Survivorship canceradvocacy.org [place] Society of Clinical Oncologists cancer.net Cancer Support [facility] www.cancersupportstl.org Radiation Therapy Questions/Answers www.rtanswers.org Resolved Problems Problem Noted Date Diagnosed Date Resolved Date Oral cancer 03/05/2021
--- OUTSIDE RECORDS SUMMARY | 2024-11-25 12:53 | XMS_ITS | Referral Summary ---
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
--- OUTSIDE RECORDS SUMMARY | 2024-11-25 12:53 | XMS_ITS | Patient Health Record ---
Author Organization [facility] Address [address] [place] [address] Care Team Providers Care Discovery Guide Name Role Phone Matt Ulrich MD Primary Care Provider UnavailKrysta Varner Unavailable [phone] Migration, Provider Unavailable Unavailable Allergies No Known [...] Risk Notes Problem Moderate recurrent major depression (78544112) Major depressive disorder, recurrent, moderate (F33.1) Active confirmed Problem Generalized anxiety disorder (32201252) Generalized anxiety disorder (F41.1) Active confirmed Vital Signs Height-cm 182.88 cm 11/29/2023 Height 72.00 in 11/29/2023 Encounters Encounter Location Date Provider Diagnosis [facility] [employer] [facility] [address] [place] [address] 11/29/2023 Krysta Raul Major depressive disorder, recurrent, moderate F33.1 and Generalized anxiety disorder F41.1 [facility] [address] [place] [address] 03/31/2024 Krysta Raul Generalized anxiety disorder F41.1 and Major depressive disorder, recurrent, moderate F33.1 [facility] [address] [facility] [address] [place] [address] 07/31/2024 Krysta Raul Generalized anxiety disorder F41.1 and Major depressive disorder, recurrent, moderate F33.1 [facility] [address] [facility] [address] [place] [address] 12/01/2023 Provider Migration [place] [id number] [facility] [address] [facility] [address] [place] [address] 12/02/2023 Provider Migration Assessments Encounter Date Diagnosis [...] effects of psychotropic medications. -Crisis prevention hotline 770. Plan Of Treatment Next Appt Details Provider Name:Krysta Garcia Raul, 11/27/2024 02:30:00 PM, [address], [facility] [address], [place], [address], Insurance Providers Payer Name Payer Address Payer Phone Subscriber Number Group Number Insured Name Patient Relationship to Insured Coverage Start Date Coverage End Date [employer] Medicare Replacement/ Advantage - Hmo [address] [address] [place] [address] [id number] MAMADOU DAVID Self - patient is the insured Medical (General) History Surgical History Surgery Date(Month/Year) Reconstructive surgery 02/07/2020 Any surgical history 02/20/2014
--- OUTSIDE RECORDS SUMMARY | 2024-11-25 12:53 | XMS_ITS | Clinical Summary ---
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
--- OUTSIDE RECORDS SUMMARY | 2024-11-25 12:53 | XMS_ITS | Clinical Summary ---
Author Organization [facility] Address [address] [place] [address] Care Team Providers Care Gravity Prospecting Supervisor Name Role Phone Alejandro Brand Primary Care Provider [phone] Source Comments [facility],non-owned Affiliates and Associated Physician Practices is amultiple site organization consisting of ambulatory clinics and hospital sitesin [place], [place], [place] and [place]. This disclosure is being madepursuant to the Care Everywhere program and may not contain all information available regarding this patient. Last updated 18.[employer] [facility] Allergies No known active allergies Medications * Be aware that medications may not be up to date on this document. Alwaysverify current medications with the patient. escitalopram (LEXAPRO) 20 MG tablet Take 10 mg by mouth once daily after lunch 1 9 Active rosuvastatin (CRESTOR) 40 MG tablet Take 1 (one) tablet by mouth once daily after lunch 0 9 Active tamsulosin (FLOMAX) 0.4 MG capsule Take 1 (one) capsule by mouth once daily after lunch 1 9 Active lisinopril (PRINIVIL; ZESTRIL) 2.5 MG tablet Take 1 (one) tablet by mouth once daily 9 Active metoprolol succinate XL 24hr (TOPROL XL) 25 MG tablet Take 1 (one) tablet by mouth once daily 0 Active multivitamin daily tablet Take 1 (one) tablet by mouth daily with food Active Nutritional Supplements (BOOST PLUS) LIQD Take 2 bottles by mouth once daily Active gabapentin (NEURONTIN) 300 MG capsule Take 1 (one) capsule by mouth at bedtime 2 Active predniSONE (Deltasone) 10 MG tablet Take 1 (one) tablet by mouth as directed Active Active Problems Problem Noted Date Diagnosed Date 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 (FLUAD QUADRIVALENT; 65Y+) (AIIV4) 04/25/2020 PNEUMOCOCCAL PPSV23 04/25/2020 Social History Tobacco Use Types Packs/Day Years Used Date Smoking Tobacco: Former Cigarettes 1.3 35 1 7 - 2011 Smokeless Tobacco: Never Tobacco Cessation:Counseling Given: Not Answered Alcohol Use Standard Drinks/Week Comments Yes 24 (1 standard drink = 0.6 oz pu re alcohol) Sex and Gender Information Value Date Recorded Sex Assigned at Not on file Legal Sex Male 5:29 AM CDT Gender Identity Not on file Sexual Orientation Not on file Last Filed Vital Signs Vital Sign Reading Time Taken Comments Blood Pressure 139/69 06/30/2022 2:28 PM DERRICK OPERATOR Pulse 51 06/30/2022 2:28 PM DERRICK OPERATOR Temperature 36.7 C (98 F) 09/16/2021 2:23 PM DERRICK OPERATOR Respiratory Rate 9 01/22/2020 12:15 PM CDT Oxygen Saturation 97% 02/13/2020 1:13 PM CDT Inhaled Oxygen Concentration - - Weight 58.2 kg (128 lb 6.4 oz) 06/30/2022 2:28 P M DERRICK OPERATOR Height 180.3 cm (5' 11 ) 06/30/2022 2:28 PM DERRICK OPERATOR Body Mass Index 17.91 06/30/2022 2:28 PM DERRICK OPERATOR Plan of Treatment Health Maintenance Due [...] VACCINE (1 - 2023-2 5 season) 2024 DEPRESSION SCREENING 07/16/2024 INFLUENZA VACCINE (Season Ended) 2025 05/29/2022, 04/25/2020 Respiratory Syncytial Virus (RSV) Vaccine Pt: or [...] on patient's age to complete [place] [address] MEDICARE MEDICARE SUPPLEMENT PAYOR GENERIC Advance Directives * Full Code (Latest Code Status on File) Date Activated Date Inactivated Comments 06/24/2019 9:35 AM 06/27/2019 3:47 PM * Full Code Date Activated Date Inactivated Comments 05/22/2019 7:57 PM 05/23/2019 12:57 PM Care Teams Gravity Prospecting Supervisor Relationship Specialty Start Date End Date Alejandro Brand DO [address] [place] [address] PCP - General 01/27/22
== END 2024-11-25 12:49 | disposition home or self-care (01) ==
PROVIDERS: PCP Family Medicine; Visit Provider Physician Assistant
DX: R06.09 Other forms of dyspnea (principal); I35.8 Other nonrheumatic aortic valve disorders; I35.1 Nonrheumatic aortic (valve) insufficiency; I51.89 Other ill-defined heart diseases
CPT/HCPCS: 93306

== ENCOUNTER 2025-01-09 09:11 | Outpatient (CLI) | payer MEDICARE, SELFPAY ==
--- NOTE | 2025-01-14 11:03 | WPDSLEEPSTUD ---
Sleep Study Date of Study: 01/09/25 Ordering Provider: MARLON Garcia Interpreting Physician: Colleen Kovacs MD Sleep Study Type: ASV Height: 1.78 m Weight: 58.967 kg Body Mass Index: 18.6 Neck Circumference (inches): 14 [place]: 11 Reason for Sleep Study Central sleep apnea * 10/07/2024 full night CPAP/BPAP titration; no optimal pressure; AHI 43, antoine saturation 90%. Sleep efficiency was low 55.1%, delayed REM onset, persistent central apneas and Fam-Salazar respirations. He returns for an ASV titration on January 09, 2025. * 05/08/2024 HST - AHI 34.2, central AHI 33.6, lowest saturation 82%, Fam-Salazar respirations 66.5% of the night. Sleep History This history is taken from his 10/07/2024 sleep study. Carmelo Yanes is 74 years old, had a BiPAP titration in October 07, 2024. This history is taken from his home sleep test on May 08, 2024 which showed severe central sleep apnea with Fam-Salazar respiration, the AHI was 34, central AHI was 33.6 desaturation to 82% and 66.5% the night with Fam-Salazar respiration.. His HST was ordered by his direct customer service representative for bradycardia and has a history of central sleep. History also includes hypertension, history of lung cancer status post right upper lobectomy 2014, tongue cancer 2019 resected and reconstructed. He has a history of paroxysmal see supraventricular tachycardia and dyslipidemia. He does not wake at night with shortness of breath. He rarely awakens at night with heartburn, belching or coughing. He occasionally has trouble sleeping when he has a cold. He does not wake at night gasping for breath. He occasionally has breathing problems at night observed by others. He frequently sweats excessively at night. He denies having heart palpitations or irregular heartbeats during the night. He frequently falls asleep during the day but never while driving. He denies feeling paralyzed on falling or upon waking. He occasionally experiences vivid dreamlike scenes upon awakening or falling asleep. He does not have muscle weakness with strong emotion. He denies feeling afraid of going to sleep. He rarely has nightmares. He occasionally remembers his dreams. He occasionally has thoughts racing through his mind. He occasionally feels sad, depressed and anxious. He occasionally has muscular tension. He occasionally notices parts of his body jerk. He rarely has crawling and aching feelings in his legs. He rarely has leg pain during the night. He rarely grinds his teeth during sleep but never awakens with morning jaw pain. He is frequently bothered by pain during the day but rarely awakened by pain during the night. He occasionally wakes up feeling stiff in the morning. He rarely wakes up with sore or achy muscles. He occasionally wakes up with pain in the neck, spine and other joints. Normal bedtime is between 1:00 a.m. to 2:00 a.m., and the amount of time to fall asleep varies. He wakes 2-3 times during the night to urinate, returns to sleep within a few minutes. He does not have a set wake up time. He typically gets 6-7 hours of sleep per night. He stays in bed 5 minutes after waking in the morning. He is currently living with his adult son. He takes naps in the afternoon the evening, an a short nap lasting 10 to 15 minutes may be refreshing. Habits: Tobacco: former smoker, quit 11 years ago. Caffeine: 16 oz of caffeinated tea per day. Alcohol: 2-3 bottles of beer per day. Recreational substances: marijuana 3-4 times per week PMFSH Past Medical History Medical History Central sleep apnea with Fam-Salazar respiration Colon cancer screening History of lung cancer 2011 History of actinic keratoses History of basal cell carcinoma (BCC) Surgical History Surgical History History of radical neck dissection History of lung surgery History of removal of cyst testicle removed 03/2019 Family History Family History Father Family history of diabetes mellitus in first degree relative Social History Social History Smoking packs per day: 1 Smoking cigarettes per day: 20.0 Years smoked: 40 Smoking pack-years: 40.00 Smoking status: Former smoker Tobacco type: cigarettes Alcohol intake: current Drinks per week: 12 Substance use: current Substance use type: marijuana Other substance usage details: 3 or 4 times a week. Lack of Transportation: No Lack of Food: Never True Current Housing: I Have Housing Concerned About Future Housing: No Difficulty Paying Gas/Electric Bills: No Difficulty Paying for Meds: No Currently Unemployed: No Education: High School Diploma/GED Difficulty w/ Childcare or Family Care: No Living arrangements: with family Spiritual care concerns: No Medications Home Medications ?Medication ?Instructions ?Recorded ?Confirmed ?Type sertraline 100 mg tablet 150 mg PO DAILY 08/19/24 08/19/24 History gabapentin 600 mg tablet 600 mg PO DAILY #90 tabs 10/17/24 Rx tamsulosin 0.4 mg capsule See Rx Instructions .Route 12/04/24 Rx .COMPLEX #90 caps rosuvastatin 40 mg tablet See Rx Instructions .Route 12/26/24 Rx .COMPLEX #90 tabs amlodipine 2.5 mg tablet 2.5 mg PO DAILY #90 tabs 12/30/24 12/30/24 Rx eszopiclone 2 mg tablet (Lunesta) 2 mg PO ONCE #1 tablet 01/07/25 Rx Sleep Procedure A full night ASV titration was performed using the [employer] [facility] Sleep[employer]ardable multi-channel system recorded the standard physiologic parameters including EEG, EOG, submentalis EMG, anterior tibialis EMG, EKG, body position, nasal and oral airflow using nasal pressure sensor and thermistor. Respiratory parameters of chest and abdominal movements were recorded with Respiratory Inductance Plethysmography belts. Oxygen saturation was recorded by pulse oximetry. Video monitoring was also performed. Sleep stages, periodic limb movements, and EEG arousals were scored in 30 second epochs according to the criteria of the AASM Scoring Manual. The Apnea-Hypopnea Index was calculated using CMS guidelines for definition of hypopnea while scoring respiratory events. The patient was started on ASV using a medium ResMed N20 nasal mask which was later changed to AirTouch fullface mask due to air leak. He had difficulty with pressure throughout the night, stated that it was intolerably high. He also complains of a poor taste in his mouth but has had recent tongue cancer treatment. His mask may have been contributing to the apparent mixed and central apneas. Initial pressure was EPAP 5 cm, minimum pressure support 3 cm, maximum pressure support 15 cm. The patient was on this pressure for over 2 hours with an elevated apnea-hypopnea index. He was adjusted to EPAP 5, minimum pressure support 5, maximum pressure support 15 with continued elevation in the AHI but he did have REM at this setting. The neck is pressure was EPAP 6, minimum pressure support 6, maximum pressure support 15. The patient had elevated AHI at all settings and low sleep efficiency was below 50% throughout the night. The industrial waste treatment technician's followed proper protocol but could not make adjustments in pressure because the patient woke up so frequently. Sleep Architecture The total recording time was 418.1 minutes. The total sleep time was 196.5 minutes. Sleep latency was 35.8 minutes. REM latency was 229.0 minutes. Sleep efficiency was 47.0%. The patient had 55 awakenings for an awakening index of 16.8. Wake after Sleep Onset time was 185.5 minutes. The patient spent 42 minutes, 21.4% of sleep time in Stage N1. The patient spent 129.5 minutes, 65.9% in Stage N2. The patient spent no sleep time in Stage N3. The patient spent 25 minutes, 12.7% in Stage REM. Respiratory Analysis The apnea-hypopnea index was 49.5. The patient had 22 obstructive apneas, 98 central apneas and 36 mixed apneas with 6 hypopneas for a total of 162 events. The REM AHI was 43.2. The non-REM AHI was 50.4. All events occurred in the supine position. The central apnea-hypopnea index was 29.9. Arousals The arousal index was 46.1. This was due to 151 total arousals. The patient had 69 respiratory arousals for an index of 21.1. The patient had 25 periodic limb movements causing arousal for an index of 7.6. Patient had 19 isolated limb movements causing arousal for an index of 5.8. Patient had 31 spontaneous arousals for an index of 9.5. Periodic Limb Movements There were 49 isolated limb movements for an index of 15. There were 109 periodic limb movements for an index of 33.3. This is a total of 158 limb movements for an index of 48.2. Oximetry Data The baseline saturation awake was 97.3%. The minimum saturation awake was 82%. The maximum saturation while awake was 80%. During sleep the average saturation was 94.4%. The minimum saturation while sleeping was 80%. The lowest saturation while sleeping was 80%. Patient spent 6.4 minutes, 1.5% of sleep time below 88%. The patient had 36 desaturations of 4% or greater for desaturation index of 11. Snoring Profile Snoring was mild. Cardiac Profile Patient has sinus rhythm with an average pulse of 47, minimum pulse 40, maximum pulse 70. He may have an intraventricular conduction delay. EEG Profile EEG was unremarkable, no evidence of seizures. Assessment and Plan Assessment and Plan (1) Central sleep apnea with Fam-Salazar respiration: Code(s): R06.3 - Periodic breathing Status: Acute Assessment and Plan: This full night ASV titration on 01/09/2025 shows a difficult titration due to low sleep efficiency and sleep fragmentation. Patient was attempted on ASV pressures ranging from EPAP 5 cm -6 cm, minimum pressure support 3 cm -6 cm and maximum pressure support 15. No optimal setting was found. The apnea-hypopnea index ranged from 46-53. I am recommending auto ASV as this will address his central apneas and Fam-Salazar respirations. He had an elevated periodic limb movement index of 33.3. His limb movement arousal index was below 15 but this may clinically be an issue. This may be one of several factors contributing to his fragile sleep. He needs to have a ferritin level, and if it is low, he needs iron supplementation. Data The data obtained during this sleep study is adequate for interpretation. Certification This sleep study has been reviewed by a board certified sleep medicine physician.
[2025-01-14 11:07] VITALS: BMI 18.6
== END 2025-01-10 06:25 | disposition home or self-care (01) ==
LOC: ANHCSM 09:17
PROVIDERS: PCP Family Medicine; Visit Provider Physician Assistant
DX: R06.3 Periodic breathing (principal); I10 Essential (primary) hypertension
CPT/HCPCS: 95811

== ENCOUNTER 2025-02-24 14:16 | Outpatient (CLI) | payer MEDICARE, SELFPAY ==
--- OUTSIDE RECORDS SUMMARY | 2025-02-24 14:40 | XMS_ITS | Clinical Summary ---
Author Organization [facility] Address [address] [place] [address] Care Team Providers Care Sales And Merchandising Representative Name Role Phone Alejandro Brand Primary Care Provider [phone] Source Comments [facility],non-owned Affiliates and Associated Physician Practices is amultiple site organization consisting of ambulatory clinics and hospital sitesin [place], [place] and [place]. This disclosure is being madepursuant to the Care Everywhere program and may not contain all information available regarding this patient. Last updated 18.[employer] Allergies No known active allergies Medications * [...] Comments Blood Pressure 139/69 06/30/2022 2:28 PM PEDIATRIC AUDIOLOGIST Pulse 51 06/30/2022 2:28 PM PEDIATRIC AUDIOLOGIST Temperature 36.7 C (98 F) 09/16/2021 2:23 PM PEDIATRIC AUDIOLOGIST Respiratory Rate 9 01/22/2020 12:15 PM CDT Oxygen Saturation 97% 02/13/2020 1:13 PM CDT Inhaled Oxygen Concentration - - Weight 58.2 kg (128 lb 6.4 oz) 06/30/2022 2:28 P M PEDIATRIC AUDIOLOGIST Height 180.3 cm (5' 11) 06/30/2022 2:28 PM PEDIATRIC AUDIOLOGIST Body Mass Index 17.91 06/30/2022 2:28 PM PEDIATRIC AUDIOLOGIST Plan of Treatment Health Maintenance Due Date Last Done Comments COLOGUARD (AGES 45-75) - COL ON CA SCREENING 1952 COLON MONITORING 1952 COLONOSCOPY - COLON CA SCREENING 1952 CT COLONOGRAPHY - COLON CA SCREENING 1950 Colorectal Cancer Screening 1952 FIT - COLON CA SCREENING 1952 FLEX SIG - COLON CA SCREENING 1952 HEPATITIS C SCREENING 01/15/1970 DTAP/TDAP/TD VACCINES (1 - Tdap) 01/19/1971 LUNG CANCER SCREENING 01/19/2002 ZOSTER VACCINE (1 of 2) 01/19/2002 AAA SCREENING 01/19/2017 PNEUMOCOCCAL VACCINE 50+ (2 of 2 - PCV) 04/25/2021 04/25/2020 COVID-19 VACCINE (1 - 2023-2 5 season) 2024 DEPRESSION SCREENING 07/16/2024 MEDICARE AWV CALENDAR YEAR 2024 INFLUENZA VACCINE (#1) 2025 2, 04/25/2020 Respiratory Syncytial Virus (RSV) Vaccine Pt: [...] patient's age to complete this topic Insurance MEDICARE MEDICARE SUPPLEMENT PAYOR GENERIC Advance Directives * Full Code (Latest Code Status on File) Date Activated Date Inactivated Comments 06/24/2019 9:35 AM 06/27/2019 3:47 PM * Full Code Date Activated Date Inactivated Comments 05/22/2019 7:57 PM 05/23/2019 12:57 PM Care Teams Sales And Merchandising Representative Relationship Specialty Start Date End Date Alejandro Brand DO [address] [place] [address] PCP - General 01/27/22
--- OUTSIDE RECORDS SUMMARY | 2025-02-24 14:40 | XMS_ITS ---
Author Organization [facility] Address [address] 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 Past Treatment and Therapy Plans No past plan information found. Treatment Summaries FOM (cancer of floor of mouth) ([facility])* Images from the original note were not [...] dissection Surgeon/Facility Name: Dr. Hernan Dickinson at [facility] Initial Imaging CT neck w/ contrast performed at [facility] on 05/13/19: Impression: No evidence of [...] Center 11/07/2019 1:15 PM Hernan Dickinson MD [facility] S Contact Information Dr. Hernan Dickinson: Nurse: Ingrid Stovall : Nurse Practitioner: Mera Meanstry: Radiation Oncologist N/A Medical Oncologist N/A Social Work Qc Manager Dr. Kayleigh Jimenez Dietitian Pastoral Care [facility] Hospital Scheduling Primary Care Provider Francois Corona MD [phone] Recommended cancer screenings Colonoscopy: every 10 years [...] walk a few extra steps. Important Resources [facility] Israeli Cancer Society cancer.org Israeli Head and Neck Society [email or web address] Association of Cancer Online Resources acor.org Caring Bridge caringbridge.org International Association of Laryngectomees theial.com/ial The Oral Cancer Foundation oralcancerfoundation.org Support for People with Oral and Head and Neck Cancer spohnc.org Head and Neck Cancer [place] headandneck.org CancerCare cancercare.org LiveStrong Foundation livestrong.org National Cancer [place] cancer.gov Cancer Survivors Network csn.cancer.org National Coalition for Cancer Survivorship canceradvocacy.org Israeli Society of Clinical Oncologists cancer.net Cancer Support Community of [facility] www.[email or web address] Radiation Therapy Questions/Answers www.[email or web address] Resolved Problems Problem Noted Date Diagnosed Date Resolved Date Oral cancer 03/05/2021
--- OUTSIDE RECORDS SUMMARY | 2025-02-24 14:40 | XMS_ITS | Patient Health Record ---
Author Organization [facility] [employer] Address [address] [facility] [address] [place] [address] Care Team Providers Care Major Gifts Director Name Role Phone Matt Ulrich MD Primary Care Provider Krysta Oden Unavailable [phone] Allergies No Known Allergies Reason For Referral No Information Medications Medication SIG (Take, Route, Frequency, Duration) Notes Start Date End Date Status Sertraline HCl 100 MG 2 tablet every morning Oral Once a day; Duration: 90 days dose increase, please cancel any previous remaining scripts Active Metoprolol Succinate 25 MG 1 capsule Orally Once a day Active Tamsulosin HCl 0.4 MG Oral 11/29/2023 Active Diclofenac Sodium 75 MG Oral 11/29/2023 Active amLODIPine Besylate 5 MG Oral 11/29/2023 Active Sertraline HCl 50 MG 1 tablet Oral Once a day; Duration: 90 days Active Gabapentin 600 MG 1 tablet Orally daily 11/29/2023 Active Rosuvastatin Calcium 40 MG Oral 11/29/2023 Active Social History Sex Assigned At : Social History Observation Description Sex Assigned At Male Household Question Answer Notes Marital status: Problems Problem Type SNOMED Code ICD Code Onset Dates Problem Status W/U Status Risk Notes Problem Moderate recurrent major depression (03116218) Major depressive disorder, recurrent, moderate (F33.1) Active confirmed Problem Generalized anxiety disorder (75549459) Generalized anxiety disorder (F41.1) Active confirmed Vital Signs Heart Rate 60 /min 11/27/2024 Height-cm 182.88 cm 11/27/2024 Blood pressure diastolic 73 mm Hg 11/27/2024 Weight-kg 58.06 kg 11/27/2024 Height 72.00 in 11/27/2024 Blood pressure systolic 144 mm Hg 11/27/2024 Weight 128 lbs 11/27/2024 BMI 17.36 kg/m2 11/27/2024 Encounters Encounter Location Date Provider Diagnosis [place] [id number] [facility] [address] [place] [address] 03/31/2024 Krysta Kurilla Generalized anxiety disorder F41.1 and Major depressive disorder, recurrent, moderate F33.1 [place] [address] [place] [address] 07/31/2024 Krysta Kurilla Generalized anxiety disorder F41.1 and Major depressive disorder, recurrent, moderate F33.1 [place] [address] [facility] [address] [place] [address] 11/27/2024 Krysta Kurilla Generalized anxiety disorder F41.1 ; Major depressive disorder, recurrent, moderate F33.1 ; Encounter for screening for depression Z13.31 ; Benign essential HTN I10 ; Encounter for screening for cardiovascular disorders Z13.6 and Dietary counseling and surveillance Z71.3 Assessments Encounter Date Diagnosis (ICD Code) Assessment [...] children and young adults, and serotonin syndrome. 11/27/2024 Major depressive disorder, recurrent, moderate (ICD-10 - F33.1) 11/27/2024 Generalized anxiety disorder (ICD-10 - F41.1) SSRI/SNRI side effects discussed including but not limited to, gastric upset, nausea, vomiting, diarrhea and/or constipation, weight changes, sexual side effects including loss of libido, increased suicidal thoughts/behavi ors in children and young adults, and serotonin syndrome. 03/31/2024 Major depressive disorder, recurrent, moderate (ICD-10 - F33.1) 07/31/2024 Major depressive disorder, recurrent, moderate (ICD-10 - F33.1) 11/27/2024 Encounter for screening for depression (ICD-10 - Z13.31) 11/27/2024 Benign essential HTN (ICD-10 - I10) 11/27/2024 Encounter for screening for cardiovascular disorders (ICD-10 - Z13.6) 11/27/2024 Dietary counseling and surveillance (ICD-10 - Z71.3) 03/31/2024 Other Stable, continue current medication. Refill [...] effects of psychotropic medications. -Crisis prevention hotline 988. 11/27/2024 Other Increase sertraline to 200mg daily for mood, anxiety Patient educated on all medications including [...] effects of psychotropic medications. -Crisis prevention hotline 988. Plan Of Treatment Next Appt Details Provider Name:Krysta gillis, 02/27/2025 03:30:00 PM, [address], [place], [address], Insurance Providers Payer Name Payer Address Payer Phone Subscriber Number Group Number Insured Name Patient Relationship to Insured Coverage Start Date Coverage End Date [employer] Medicare Replacement/ Advantage - Hmo [address] [address] [place] [address] [id number] MAMADOU DAVID Self - patient is the insured Medical (General) History Medical History History ICD Code Problems: Generalized anxiety disorder Moderate recurrent major depression , Surgical History Surgery Date(Month/Year) Reconstructive surgery 02/07/2020 Any surgical history 02/20/2014
--- OUTSIDE RECORDS SUMMARY | 2025-02-24 14:40 | XMS_ITS | Clinical Summary ---
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
[2025-02-24 16:05] LABS: Ferritin 222.00 ng/mL (11.1-264)
== END 2025-02-24 14:17 | disposition home or self-care (01) ==
LOC: ANHLAB 14:16
PROVIDERS: PCP Family Medicine; Visit Provider Nurse Practitioner Family
DX: I48.4 Atypical atrial flutter (principal); G47.61 Periodic limb movement disorder
CPT/HCPCS: 36415; 82728

== ENCOUNTER 2025-06-16 13:51 | Outpatient (CLI) | payer MEDICARE, SELFPAY ==
--- NOTE | ~2025-06-16 | CT_ITS ---
EXAMINATION: CT chest high resolution wo mt DATE: 06/16/2025 14:14 INDICATION: Personal history of malignant neoplasm TECHNIQUE: Computed tomography (CT) of the chest was performed without intravenous contrast. The dose-length product was 155.57 mGy-cm. Automated exposure control and iterative reconstruction technique were employed. COMPARISON: CT dated 07/28/2024 FINDINGS: Heart size normal. No thoracic lymphadenopathy. There is atherosclerosis of the aorta and coronary arteries. No significant pleural or pericardial effusion. There are calcified granulomas of the liver and spleen. There is gynecomastia. No status post right upper lobectomy. There is lower lobe atelectasis/scarring. No suspicious pulmonary nodules or masses. Mild emphysema. Enlarged central pulmonary arteries consistent with pulmonary arterial hypertension. Mild chronic anterior wedging of mid thoracic vertebra. IMPRESSION: 1. No evidence for metastatic disease. Status post right upper lobectomy. Reviewed, dictated and finalized at location I. [facility]
--- OUTSIDE RECORDS SUMMARY | 2025-06-16 14:58 | XMS_ITS | Clinical Summary ---
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
--- OUTSIDE RECORDS SUMMARY | 2025-06-16 14:58 | XMS_ITS | Clinical Summary ---
Author Organization [facility] [employer] Address [address] [place] [address] Care Team Providers Care Stave Cutting Supervisor Name Role Phone Alejandro Brand Primary Care Provider Source Comments [facility] [employer],non-owned Affiliates and Associated Physician Practices is amultiple site organization consisting of ambulatory clinics and hospital sitesin [place], [place], [place] and [place]. This disclosure is being madepursuant to the Care Everywhere program and may not contain all information available regarding this patient. Last updated 04/05/18.140[facility] Allergies No known active allergies Medications * [...] Comments Blood Pressure 139/69 06/30/2022 2:28 PM RISK COMPLIANCE MANAGER Pulse 51 06/30/2022 2:28 PM RISK COMPLIANCE MANAGER Temperature 36.7 C (98 F) 09/16/2021 2:23 PM RISK COMPLIANCE MANAGER Respiratory Rate 9 01/22/2020 12:15 PM CDT Oxygen Saturation 97% 02/13/2020 1:13 PM CDT Inhaled Oxygen Concentration - - Weight 58.2 kg (128 lb 6.4 oz) 06/30/2022 2:28 P M RISK COMPLIANCE MANAGER Height 180.3 cm (5' 11) 06/30/2022 2:28 PM RISK COMPLIANCE MANAGER Body Mass Index 17.91 06/30/2022 2:28 PM RISK COMPLIANCE MANAGER Plan of Treatment Health Maintenance Due Date [...] (2 of 2 - PCV) 04/25/2021 04/25/2020 DEPRESSION SCREENING 07/16/2024 MEDICARE AWV CALENDAR YEAR 2024 COVID-19 VACCINE (1 - 2024-2 6 season) 2025 INFLUENZA VACCINE (#1) 2025 2, 04/25/2020 Respiratory [...] 7:57 PM 05/23/2019 12:57 PM Care Teams Stave Cutting Supervisor Relationship Specialty Start Date End Date Alejandro Brand DO [address] [place] [address] PCP - General 01/27/22
--- OUTSIDE RECORDS SUMMARY | 2025-06-16 14:58 | XMS_ITS ---
Author Organization [facility] Address [address] 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 Past Treatment and Therapy Plans No past plan information found. Treatment Summaries FOM (cancer of floor of mouth) ([facility])* Images from the original note [...] dissection Surgeon/Facility Name: Dr. Hernan Dickinson at [facility] Initial Imaging CT neck w/ contrast performed at [facility] on 05/13/19: Impression: No evidence [...] Center 11/07/2019 1:15 PM Hernan Dickinson [facility] Contact Information Dr. Hernan Dickinson: Nurse: Ingrid Stovall : Nurse Practitioner: Mera Meanstry: Radiation Oncologist N/A Medical Oncologist N/A Social Work Upholstery Restorer Dr. Kayleigh Jimenez Dietitian Pastoral Care [facility] Hospital Scheduling Primary Care Provider Francois Corona MD [phone] Recommended cancer screenings Colonoscopy: every 10 years [...] walk a few extra steps. Important Resources [email or web address] [employer] Society cancer.org Vincent[employer] Head and Neck Society [email or web address] Association of Cancer Online Resources acor.org Caring Bridge [email or web address] International Association of Laryngectomees theial.com/ial The Oral Cancer Foundation oralcancerfoundation.org Support for People with Oral and Head and Neck Cancer spohnc.org Head and Neck Cancer [place] headandneck.org CancerCare cancercare.org LiveStrong Foundation livestrong.org National Cancer [place] cancer.gov Cancer Survivors Network csn.cancer.org National Coalition for Cancer Survivorship canceradvocacy.org [employer] Society of Clinical Oncologists cancer.net Cancer Support [facility] [email or web address].[email or web address] Radiation Therapy Questions/Answers www.rtanswers.org Resolved Problems Problem Noted Date Diagnosed Date Resolved Date Oral cancer 03/05/2021
== END 2025-06-16 13:52 | disposition home or self-care (01) ==
PROVIDERS: PCP Family Medicine; Visit Provider Family Medicine
DX: Z90.2 Acquired absence of lung [part of] (principal); Z85.118 Personal history of other malignant neoplasm of bronchus and lung
CPT/HCPCS: 71250